=== PATIENT | female | born 1940 | race Caucasian/White ===

== ENCOUNTER 2016-11-11 11:52 | Emergency (ER) | payer MEDICARE ==
[2016-11-11 12:14] VITALS: BP 137/74
[2016-11-11] MEDS ORDERED: Albuterol 2.5 MG/3 ML NEB.SOL* (0.083%) INH ONE (13:47)
[2016-11-11] MEDS ORDERED: Ipratropium 0.5MG/2.5ML NEB* 0.5 MG/2.5 ML NEB.SOLN INH ONE (13:47)
--- NOTE | 2016-11-11 15:10 | UC ---
Cornelio Sin SooYoung, scribed for JesúsAlicenayeli Leon DO on 11/11/16 at 1226 . General HPI - HPI Summary HPI Summary: A 76 y/o F presents to [facility] [place] with c/o multiple symptoms onset two days ago, worsening last night and this AM. Sx include chills, chest congestion, mildly productive cough (clear phlegm), mild ear pressure, general malaise. Denies sore throat, ear pain, n/v, bowel changes. Pert PMHx: asthma. She states she used her albuterol inhaler at approx 1100 this AM [employer]. Pt notes she went to a hockey game last night, got quite chilled and was unable to get warm. Secondary complaint of intermittent back pain between shoulder blades radiating to R jaw and neck, last acute episode occurred last night. - History of Current Complaint Chief Complaint: UCGeneralIllness Stated Complaint: COUGH-JAW PAIN-SHOULDER PAIN- Time Seen by Provider: 11/11/16 12:10 Hx Obtained From: Patient Onset/Duration: Lasting Days, Still Present Timing: Constant Onset Severity: Mild Current Severity: Mild Pain Intensity: 0 - out of 10 Associated Signs & Symptoms: Positive: Back Pain - secondary complaint, Cough, Other - pos: chest congestion, chills, ear pressure - not pain, general malaise. Negative: Abdominal Pain, Chest Pain, Dizziness, Diaphoresis, Fever, Headache, Nausea, SOB, Vomiting - Allergy/Home Medications Allergies/Adverse Reactions: Allergies Allergy/AdvReac Type Severity Reaction Status Date / Time No Known Allergies Allergy Verified 09/14/12 11:02 Home Medications: Home Medications Beclomethasone Dipropionate [Qvar] 2 puff BID 11/11/16 [History Confirmed ] Ibuprofen TAB* [Advil TAB*] 2 tab PO 11/11/16 [History] PMH/Surg Hx/FS Hx/Imm Hx Previously Healthy: No Cardiovascular History Of: Denies: Hypertension, Pacemaker/ICD, Congestive Heart Failure Respiratory History Of: Reports: Asthma, Bronchitis Cancer History Of: Reports: Breast Cancer - LEFT BREAST 1995 - Surgical History Surgical History: Yes Surgery Procedure, Year, and Place: 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 CATARACT. COLON SURGERY. LUMPECTOMY - Family History Known Family History: Positive: Other - mother: osteoporosis Negative: Cardiac Disease, Hypertension, Diabetes - Social History Occupation: Retired Lives: With Family Alcohol Use: Weekly Substance Use Type: None Smoking Status (MU): Never Smoked Tobacco Review of Systems Constitutional: Chills Skin: Negative Eyes: Negative ENT: Other - pos: ear pressure, chest congestion Respiratory: Cough Cardiovascular: Negative Gastrointestinal: Negative Genitourinary: Negative Motor: Negative Neurovascular: Negative Musculoskeletal: Other: - pos: general malaise; secondary complaint of back pain Neurological: Negative Psychological: Negative All Other Systems Reviewed And Are Negative: Yes Physical Exam Triage Information Reviewed: Yes Appearance: Well-Appearing, No Pain Distress, Well-Nourished Vital Signs: Initial Vital Signs Temp 98.1 F 11/11/16 12:07 Pulse 72 11/11/16 12:07 Resp 18 11/11/16 12:07 BP 137/74 11/11/16 12:07 Pulse Ox 98 11/11/16 12:07 Vital Signs Reviewed: Yes Eyes: Positive: Conjunctiva Clear. Negative: Discharge ENT: Positive: Hearing grossly normal, Pharynx normal, Nasal drainage, TMs normal. Negative: Tonsillar swelling, Muffled/hoarse voice Dental: Positive: Other: - TENDER OVER MASETTER AND TMJ Neck exam: Normal Neck: Positive: Supple Respiratory: Positive: Wheezing - DIFFUSE WHEEZING OVER LEFT LUNG, MILD IN RT Diagnostics - EKG Cardiac Rate: NL - HR: 65bpm Cardiac Rhythm: Sinus: Normal - no change since prior 2003 Re-Evaluation - Re-Evaluation First Eval Re-Evaluation Time: 02:55 Change: Improved - CLEAR ALL VILLEDA S/P NEBS Course/Dx - Differential Dx - Multi-Symptom Provider Diagnoses: ASTHMA Discharge - Discharge Plan Condition: Stable Disposition: HOME Patient Education Materials: Asthma (ED), Temporomandibular Disorder (ED) Referrals: Teresa Pantoja MD [Primary Care Provider] - (3-5 days) Additional Instructions: FOR YOUR ASTHMA, WE RECCOMEND THAT YOU USE YOUR INHALER EVERY 4 HOURS NEEDED FOR EXCESSIVE COUGH, SHORTNESS OF BREATH AND WHEEZING. wE WILL HOLD OFF ON OTHER TREATMENTS NOW SINCE YOU CLEARED UP COMPLETELY WITH THE NEBULIZER TREATMENT. WILL WILL CALL YOU TOMORROW TO CHECK AND MAKE SURE THAT YOU ARE STILL DOING WELL. FOR THE TMJ DISORDER: FOLLOW UP WITH YOUR DENTIST THIS WEEK PLENNED. YOU WOULD LIKELY BENEFIT FROM OSTEOPATHIC TREATMENT. WE RECOMMEND THAT YOU FIND AN OSTEOPATHIC PHYSICIAN IN YOUR AREA WHO FOCUSES EXCLUSIVELY ON OSTEOPATHIC MANIPULATIVE MEDICINE WITH EXPERTISE IN MYOFACIAL, LYMPHATIC, VISCERAL AND INTEROSSEOUS WORK The documentation as recorded by the Cornelio alexis SooYoung accurately reflects the service I personally performed and the decisions made by me, Alice Espinosa DO.
== END 2016-11-11 15:09 | disposition home or self-care (01) ==
LOC: UCEAST 11:52
DX: J45.909 Unspecified asthma, uncomplicated (principal); J34.89 Other specified disorders of nose and nasal sinuses; M26.609 Unspecified temporomandibular joint disorder, unspecified side
CPT/HCPCS: 93005; 99212; G0463; J7644

== ENCOUNTER 2017-10-03 07:05 | Day surgery (SDC) | payer MEDICARE ==
--- NOTE | 2017-09-30 19:10 | HP ---
CC: Teresa Pantoja MD; Derian Lay MD * ADMISSION HISTORY AND PHYSICAL: DATE OF ADMISSION: 10/03/17 ATTENDING SURGEON: Philipp Doherty MD * (dictated by CARMEN Caruso). CHIEF COMPLAINT: Right breast cancer. HISTORY OF PRESENT ILLNESS: This is a 77-year-old female, who underwent mammogram on 09/12/17. This was in followup of a prior mammogram, which had noted micro- calcifications in the upper outer quadrant of the right breast. On the most recent study these had progressed and recommendation was made for biopsy. 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 A biopsy clip was placed and confirmed. The patient's background history includes a lumpectomy with axillary dissection for a left breast cancer in 1995 (the lymph nodes were negative). She did complete both chemotherapy and radiation therapy under the direction of Dr. Lay. Prior to the recent mammogram, the patient had noted no change in either breast and specifically no skin or nipple changes , nipple discharge, or breast mass. The patient was seen in the office by Dr. Doherty on 09/24/17, at which time there was noted to be some ecchymosis presumably from the recent biopsy and also some thickening in the 10 o'clock position of the right breast 4 cm from the areola. It was unsure if this was related to the biopsy or the cancer itself. There is no other palpable abnormality of either breast and no nipple discharge. Dr. Doherty discussed with her the indications for surgery, the risks, benefits and alternatives. She under-stands the expected perioperative course and would like to proceed as scheduled with wide excision right breast cancer (following needle localization) ; sentinel lymph node biopsy. PAST MEDICAL HISTORY: Left breast cancer (she does have some mild lymphedema in the left upper extremity following treatment). She was treated for a cancerous polyp of the colon approximately 11 years ago with subsequent segmental laparoscopic assisted colectomy, which was negative for any residual carcinoma. Medically, she is treated for asthma and overactive bladder. She does have some arthritis. PAST SURGICAL HISTORY: Her other previous surgeries include, (see above), lumbar laminectomy and bilateral cataract extraction with lens implants. No reported surgical or anesthesia problems. CURRENT MEDICATIONS: 1. Alvesco metered-dose inhaler 160 mcg 2 puffs once daily. 2. Oxybutynin Extended Release 10 mg once daily. 3. Montelukast 10 mg once daily. 4. Fish oil with D, once daily. 5. Calcium with D once daily. 6. She also takes a separate vitamin D 500 IU once daily. 7. Multivitamin once daily. 8. Albuterol MDI p.r.n. (has not needed of late). 9. Systane eyedrops 1 drop OU t.i.d. DRUG ALLERGIES: None known. FAMILY HISTORY: Negative for breast or ovarian cancer, and also negative for anesthesia problems, bleeding or clotting disorders. SOCIAL HISTORY: The patient is . She is most recently retired from [employer] work. She denies use of tobacco. She drinks on an average 3 glasses of wine per week. She denies any other recreational drug use. REVIEW OF SYSTEMS: General: No recent constitutional symptoms or acute illnesses. Weight has been stable. Cardiovascular: No history of hypertension , chest pain, or palpitations. She was told she has a heart murmur by her engineering aide. Respiratory: She is followed by Dr. Petty at [place] (see attached). No recent exacerbations of her asthma. No chronic cough or shortness of breath. GI: No problems reported other than some concerns for a couple of polyps removed at last colonoscopy in January 2017 with recommended followup in 1 year. No interval symptoms reported. : No problems reported. POP SINGER: See above. She no longer requires Pap smears. Endocrine: No diabetes or thyroid dysfunction. PHYSICAL EXAMINATION GENERAL: Well-nourished, well-developed female, in no acute distress. VITAL SIGNS: Height 62 inches, weight 138 pounds; temperature 96.9, blood pressure 122/64, pulse 84, respirations 18. HEENT: Pupils are equal, round, and reactive. EOMs intact. No conjunctival pallor. Oropharynx: Teeth in good repair. No intraoral lesions. NECK: No lymphadenopathy in the cervical or supraclavicular regions. No thyromegaly or masses. LUNGS: Clear to auscultation. No wheezes or rales. BREASTS: Not re-examined today (see Dr. Doherty's exam as noted above). HEART: Regular rate and rhythm. No murmur appreciated. ABDOMEN: Soft, nontender to palpation. No palpable masses or organomegaly. BACK: No spinous process or CVA tenderness. GENITALIA: Not done. RECTAL: Not done. EXTREMITIES: No edema of the lower extremities. There is some mild lymphedema in the left upper arm. NEUROLOGICAL: Grossly intact. SKIN: Warm and dry. No suspicious rashes or lesions. IMPRESSION: Right breast cancer. PLAN: Wide excision right breast cancer (following needle localization); sentinel lymph node biopsy. CARMEN CARUSO [id number]/[facility] #: [id number] [facility] CENTERSuman
[~2017-10-03 07:05] MED LIST: Buffered Lidocaine 0.9% SYRIN* 5 ML/SYR SYRINGE INTRADERM ONE; DiMENhydriNATE IV* 50 MG/ML VIAL IV PUSH PRN; Famotidine IV* 10 MG/ML 2 ML (20 mg) IV ONE; Morphine INJ* 2 MG/ML 1 ML CARPUJECT IV PRN; Naloxone* 0.4 MG/ML 1 ML VIAL IV PRN; PROCHLORPERAZINE INJ 5 MG/ML 2 ML VIAL IV PRN; fentaNYL* 50 MCG/ML 2 ML VIAL (100 MCG VIAL) IV PRN; oxyCODONE/Acetamin 5/325 MG* TAB PO PRN
[2017-10-03] MEDS ORDERED: Lidocaine 2.5%/Prilocain 2.5%* 5 GM TUBE ONE (07:21)
--- NOTE | 2017-10-03 09:49 | RAD ---
Indication: Invasive adenocarcinoma RIGHT breast. Mammographic guided wire localization requested. Comparison: Stereotactic biopsy of September 16, 2017 and September 12, 2017 mammogram. Following discussion of benefits and risks including but not limited to pain, infection, and bleeding written informed consent was obtained. The breast was marked. PROCEDURE: A time out was performed. Cephalad to caudal approach selected. Biopsy marker clip, residual microcalcifications, and presumed small postbiopsy hematoma identified on initial mammographic view with fenestrated compression paddle. The skin was cleansed with antiseptic. 1% buffered Lidocaine was infiltrated into the skin and subcutaneous tissues. A 7.5cm 20g Hernandez needle was advanced into the breast at the site of the targeted lesion. Position checked with a mammogram. Orthogonal view obtained to assess depth of needle. Needle depth adjusted and rechecked with mammography. The needle was removed and the hook wire deployed. Post deployment CC and ML views obtained and annotated for the surgeon. The free end of the wire was taped to the skin. The patient tolerated the procedure without difficult and there were no immediate complications. IMPRESSION: Successful mammographic guided wire localization RIGHT breast upper outer quadrant biopsy proven invasive adenocarcinoma.
[2017-10-03] MEDS ORDERED: ceFAZolin 2 GM in 100 MLS NS (*) BAG IVPB ONE (10:51)
[2017-10-03] MEDS ORDERED: Famotidine IV* 10 MG/ML 2 ML (20 mg) ONE (10:51)
--- NOTE | 2017-10-03 11:57 | RAD ---
INDICATION: RIGHT breast cancer. PROCEDURE: The risks and benefits of the procedure were explained to the patient. Written informed consent was obtained. 0.301 mCi total of filtered sulfur colloid were injected intradermal in 4 divided doses along the areolar margin flanking the upper outer quadrant RIGHT breast tumor site. Spot images?were?obtained?of?the?thorax with the ipsilateral arm over the head. Solitary ipsilateral axillary sentinal node marked on the skin utilizing a point source with the patient supine with the RIGHT arm over the head. IMPRESSION: Successful RIGHT breast lymphoscintigraphy.
[2017-10-03] MEDS ORDERED: fentaNYL* 50 MCG/ML 2 ML VIAL (100 MCG VIAL) ONE (12:04)
[2017-10-03] MEDS ORDERED: Midazolam* 1 MG/ML 10 ML VIAL (10 MG) ONE (12:04)
[2017-10-03] MEDS ORDERED: KETAMINE HCL* 50 MG/ML 10 ML VIAL ONE (12:04)
[2017-10-03] MEDS ORDERED: Lidocaine 1% INJ* 10 MG/ML 30 ML SDV ONE (12:41)
[2017-10-03] MEDS ORDERED: Bupivacaine 0.5% SDV PF* 10-30ML VIAL ONE ×2 (12:41→13:50)
[2017-10-03] MEDS ORDERED: Lidocaine 1.5% EPI 1:200,000* 30 ML SDV ONE ×2 (12:41→13:50)
[2017-10-03] MEDS ORDERED: Ketorolac INJ* 30 MG/ML 1 ML VIAL ONE (13:57)
[2017-10-03] MEDS ORDERED: Ondansetron INJ* 2 MG/ML VIAL ONE (13:57)
[2017-10-03] MEDS ORDERED: Dexamethasone IV* 4 MG/ML 1 ML (4 MG) ONE (13:57)
[2017-10-03] MEDS ORDERED: Propofol* 500 MG/50 ML BTL ONE (13:57)
[2017-10-03] MEDS ORDERED: Lidocaine 2% PF * 5 ML VIAL ONE (13:57)
--- NOTE | 2017-10-03 14:31 | OP ---
Operative Report - Blank - Operative Report Date of Operation: 10/03/17 Note: Pre-op dx: Right Breast Cancer Post-op dx: Right Breast Cancer Procedure: Wide excision of right breast cancer with sentinel lymph node biopsy. Anesthesia: local with MAC Surgeon: Dr. Doherty Assist: Hannah ZENDEJAS EBL: less than 50 Specimen: Right breast tissue and SLN Fluids: LR 700 ml Drains: None Findings: see dictation
[2017-10-03 14:44] VITALS: BP 123/70
--- NOTE | 2017-10-04 11:30 | OP ---
CC: Dr. Doherty; Dr. Pantoja; Dr. Lay OPERATIVE REPORT: DATE OF OPERATION: 10/03/17 DATE OF : 36 SURGEON: Philipp Doherty MD SYSTEM SOFTWARE DEVELOPER: None. ANESTHESIOLOGIST: Dr. Tubbs. ANESTHESIA: LMAC anesthesia. PRE-OP DIAGNOSIS: Right breast carcinoma. POST-OP DIAGNOSIS: Right breast carcinoma. OPERATIVE PROCEDURE: Needle localizing wide local excision, sentinel node biopsy of right breast can cer. DESCRIPTION OF PROCEDURE: The patient was supine on the operative table. After adequate intravenous sedation, compression stockings, Dorina Hugger warmer and intravenous antibiotics, the right breast an d axilla were prepped with antiseptic and draped in a sterile fashion. A curvilinear incision was cr eated in the right upper outer quadrant, it was tunneled underneath and the wire was brought into the site and the excision was carried out with a piece of tissue approximately 5 x 7 x 4 cm in size. Th is was carried down to the pectoralis fascia. It was marked with the usual marking sutures and sent fresh to x-ray, which confirmed excision of the lesion. It was then forwarded on to Pathology. Hemo stasis was obtained using cautery, suture were appropriate and the closure was accomplished using 3-0 and 5-0 Vicryl. In the right axilla, approximately 3-cm incision was created. Dissection carried d own to the axillary deja basin and solitary sentinel node was identified. This had count of 720. Th e basin count was down in single digits following this. This was sent in formalin labeled sentinel no de #1 count 720. Hemostasis was good. Closure accomplished in identical fashion followed by Jarret gonsalves. She was awakened and brought to Recovery in good condition. No complications. No drains. Pat hologic specimen is right breast excision and right axillary sentinel node. Sponge and instrument cou nts were correct. Estimated blood loss less 30 mL. [id number]/[facility] #: [id number]
== END 2017-10-03 15:25 | disposition home or self-care (01) ==
LOC: SDS 07:05
PROVIDERS: ATTEND Surgery
DX: C50.411 Malignant neoplasm of upper-outer quadrant of right female breast (principal); Z85.038 Personal history of other malignant neoplasm of large intestine; J45.909 Unspecified asthma, uncomplicated
CPT/HCPCS: 78195; 88307; 88342; A9270-GY; A9541; J1100; J1885; J2250; J2405; J2704; J3010

== ENCOUNTER 2019-07-18 00:08 | Emergency (ER) | payer MEDICARE ==
[2019-07-18] MEDS ORDERED: Alteplase* 100 MG VIAL ONE (00:15)
[2019-07-18] MEDS ORDERED: Iodixanol* (CONTRAST) 320 MG/ML 100 ML SDV IV ONE (00:16)
[2019-07-18] MEDS ORDERED: NS 0.9% 1000 ML** 1,000 ML IV ONE (00:16)
--- NOTE | 2019-07-18 00:20 | ED ---
Neurological HPI - HPI Summary HPI Summary: Patient is a 78 y/o F presenting to [facility] with complaints of left-sided arm and leg weakness, left-sided facial droop, and slurred speech. Last known well is reported to be 222907/17/19. EMS was called and evaluated the patient. They claim that Sx resolved shortly after their arrival. However, they still advised the patient to come to ED for evaluation. While loading the patient onto their stretcher, Sx returned and are reported to have been more severe than initial presentation. Patient denies Hx of stroke and cardiac issues. However, EMS notes that the patient was showing afib on monitor. BP was 160s/80s. Patient is not on blood thinners. Patient lives with her . Hx of UTIs is reported. Home medications and allergies are reviewed. Imani perez was called at 0003 with EMS ETA of six minutes. EMS arrived at 0008, provider at stretcher immediately to evaluate the patient. Initial NIH was done at 0009, patient in CT room at this time as well. - History of Current Complaint Stated Complaint: IMANI PEREZ PER EMS Hx Obtained From: Patient, EMS Onset/Duration: Started hours ago, Still Present Current Severity: Severe Neurological Deficit Location: Facial, LUE, LLE Character: Motor Weakness, Impaired Speech Associated Signs and Symptoms: Positive: Weakness, Impaired Speech - Allergy/Home Medications Allergies/Adverse Reactions: Allergies Allergy/AdvReac Type Severity Reaction Status Date / Time Seasonal and Environmental Allergy Intermediate Eyes Uncoded 03/13/18 12:28 Allergie Itchy/Swollen/Red/Watery PMH/Surg Hx/FS Hx/Imm Hx Endocrine/Hematology History: Denies: Hx Diabetes Cardiovascular History: Denies: Hx Congestive Heart Failure, Hx Hypertension, Hx Pacemaker/ICD, Other Cardiovascular Problems/Disorders Respiratory History: Reports: Hx Asthma - moderate GI History: Reports: Other GI Disorders - colon cancer History: Denies: Hx Renal Disease Musculoskeletal History: Reports: Hx Arthritis - mild- hands Denies: Hx Rheumatoid Arthritis, Hx Osteoporosis Sensory History: Reports: Hx Contacts or Glasses - glasses, Hx Hearing Aid - both Opthamlomology History: Reports: Hx Contacts or Glasses - glasses Psychiatric History: Denies: Hx Panic Disorder - Cancer History Cancer Type, Location and Year: breast, colon Hx Chemotherapy: Yes Hx Radiation Therapy: Yes - FINISHED END OF OCTOBER 2017 RIGHT/HX OF LEFT - Surgical History Surgery Procedure, Year, and Place: L3-L4-L5 FUSION 15 years ago [facility] ,. LEFT BREAST CANCER lumpectomy 21 years ago _[facility],. colon resection for colon cancer [facility] 2005. bilat cataracts removed with IOL. tonsillectomy as a child. 2017 - Rt LUMPECTOMY - BREAST Hx Anesthesia Reactions: No - Family History Known Family History: Positive: Other - mother: osteoporosis Negative: Cardiac Disease, Hypertension, Diabetes - Social History Alcohol Use: Weekly Alcohol Amount: 2-3 Substance Use Type: Reports: None Smoking Status (MU): Never Smoked Tobacco Have You Smoked in the Last Year: No Review of Systems Constitutional: Other - negative - AMS Positive: Weakness - left arm, left leg, left facial droop , Slurred Speech All Other Systems Reviewed And Are Negative: Yes Physical Exam - Summary Physical Exam Summary: Appearance: Well-appearing, Well-nourished, lying in bed comfortably Skin: Warm, dry, no obvious rash Eyes: sclera anicteric, no conjunctival pallor ENT: mucous membranes moist, pharynx appears normal Neck: Supple, nontender Respiratory: Clear to auscultation, no signs of respiratory distress Cardiovascular: Normal S1, S2. No murmurs. Normal distal pulses in tibial and radial bilaterally. Abdomen: Soft, nontender, normal active bowel sounds present Musculoskeletal: Normal, Strength/ROM Intact Neurological: Alert and oriented to place and self, somewhat vague about time, mentation is grossly normal, speech is dysarthric but intelligible, Level of consciousness nml. Cranial nerves exam notable for left gaze paresis. Gaze is otherwise conjugate and without nystagmus. Peripheral vision, pt cannot understand. There are no gross sensory abnormalities to light touch but she does have extinction to double simultaneous stimuli on the left. There is no obvious fine motor ataxia. Gait is not tested. She has a dense left facial and left UE paralysis, LLE can move somewhat against gravity but not resistance. GCS 15, NIH 14, see scale for breakdowns. Psychiatric: affect is a bit restless, does not appear anxious or depressed Triage Information Reviewed: Yes Vital Signs Reviewed: Yes - Street Coma Scale Best Eye Response: 4 - Spontaneous Best Motor Response: 6 - Obeys Commands Best Verbal Response: 5 - Oriented Coma Scale Total: 15 Procedures - Sedation Patient Received Moderate/Deep Sedation with Procedure: No Diagnostics - Laboratory Result Diagrams: 07/18/19 00:37 07/18/19 00:37 Lab Statement: Any lab studies that have been ordered have been reviewed, and results considered in the medical decision making process. - CT BRAIN CT CT Interpretation Completed By: Radiologist Summary of CT Findings: IMPRESSION: Probable age-related generalized atrophy and chronic ischemic changes. No. acute intracranial process. No intracranial hemorrhage. If clinical concern. for acute infarction, MRI with diffusion weighted sequences or intracranial CTA. should be considered. THIS REPORT WAS REVIEWED BY DR. RAMOS. 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 middle cerebral artery. Followup with neuro-interventional consult is. recommended. No other significant stenosis, occlusion or aneurysmal dilatation. within the anterior or posterior intracranial arterial circulation. Diminutive right vertebral artery, almost certainly congenital. No significant. stenosis or occlusion within the carotid or vertebral arteries of the neck. THIS REPORT WAS REVIEWED BY DR. RAMOS. - EKG 0036 Cardiac Rate: NL - rate of 92 BPM EKG Rhythm: Sinus Rhythm Summary of EKG Findings: EKG showed NSR at 92 BPM, P waves, QRS complex, and T waves are within normal limits, T waves and intervals are normal, no ischemic changes, no STEMI. This is a normal EKG. This EKG was reviewed and interpreted by ED physician. NIH Scale - NIH Scale Level of Consciousness: Alert/Keenly Responsive Ask Patient the Month and His/Her Age: Both Correct Ask Pt to Open/Close Eyes and Ditching Machine Engineer/Release Non-Paretic Hand: Both Correctly Best Gaze (Only Horizontal Eye Movement): Forced Deviation Visual Field Testing: No Visual Loss Facial Paresis-Pt to Smile & Close Eyes or Grimace Symmetry: Complete Paralysis Motor Function - Right Arm: No Drift-Holds 10 Seconds Motor Function - Left Arm: No Movement Motor Function - Right Leg: No Drift-Holds 10 Seconds Motor Function - Left Leg: Effort Against [place] Limb Ataxia-Must be out of Proportion to Weakness Present: Absent Sensory (Use Pinprick to Test Arms/Legs/Trunk/Face): Normal Best Language (Describe Picture, Name Items): No Aphasia Dysarthria (Read Several Words): Slurs Some Words Extinction and Inattention: Profound Brayan-Inattention Total Score: 14 Re-Evaluation - Re-Evaluation First Eval Re-Evaluation Time: 00:25 Comment: Family in ED, patient's case was discussed. Second Eval Re-Evaluation Time: 00:50 Comment: Patient and family agreeable with transfer. Course/Dx - Course Course Of Treatment: Patient is a 78 y/o F presenting to [facility] with complaints of left-sided arm and leg weakness, left-sided facial droop, and slurred speech. Last known well is reported to be 2230 07/17/19. EMS was called and evaluated the patient. They say that Sx resolved shortly after their arrival. However, they still advised the patient to come to ED for evaluation. While loading the patient onto their stretcher, Sx returned and are reported to have been more severe than initial presentation. Patient denies Hx of stroke and cardiac issues. However, EMS notes that the patient was showing afib on monitor. BP was 160s/80s. Patient is not on blood thinners. NIH was 14, see scale for breakdown. EKG showed NSR at 92 BPM, P waves, QRS complex, and T waves are within normal limits, T waves and intervals are normal, no ischemic changes, no STEMI. This is a normal EKG. BRAIN CT IMPRESSION: Probable age- related generalized atrophy and chronic ischemic changes. No. acute intracranial process. No intracranial hemorrhage. If clinical concern. for acute infarction, MRI with diffusion weighted sequences or intracranial CTA. should be considered. BRAIN CTA IMPRESSION: Probable near occlusive intra- arterial thrombus in the M1 segment of the right. middle cerebral artery. Followup with neuro-interventional consult is. recommended. No other significant stenosis, occlusion or aneurysmal dilatation. within the anterior or posterior intracranial arterial circulation. Diminutive right vertebral artery, almost certainly congenital. No significant. stenosis or occlusion within the carotid or vertebral arteries of the neck. After consultation with stroke neurologist at [place], Dr. 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 We are also giving TPA while arranging transport. Patient will be transferred to [facility] for neurosurgery services as [employer] is not flying. 0107 - Patient' s case was discussed with [facility] physician, Dr. Froilan Powell, Dr. Powell accepts transfer of patient to [facility]. - Diagnoses Provider Diagnoses: CVA (cerebral vascular accident) During the Visit The Following Alert/Code Occurred: Code [place]aly - Code suresh was called at 0003 with EMS ETA of six minutes. EMS arrived at 0008, provider at [facility] immediately to evaluate the patient. Initial NIH was done at 0009, patient in CT room at this time as well. 0014 - TPA mixing initiated, [facility] to be contacted. 0020 - report given to [place]. 0041 - Patient's case was discussed with Dr. Dennis Pearl, stroke neurologist from [facility] in [place]. He notes proximal right MCA occulsion, TPA to be given. Patient will be transferred to [facility] for neurosurgery services. 0053 - TPA administration initiated. - Physician Notifications Discussed Care Of Patient With: Dennis Pearl Time Discussed With Above Provider: 00:41 Instructed by Provider To: Other - 0041 - Patient's case was discussed with Dr. Dennis Pearl, stroke neurologist from [facility] in [place]. He notes proximal right MCA occulsion, TPA to be given. Patient will be transferred to [facility] for neurosurgery services. 0107 - Patient's case was discussed with [facility] physician, Dr. Froilan Powell, Dr. Powell accepts transfer of patient to [facility] - Critical Care Time Critical Care Time: 30-74 min - 55 minutes CCT Discharge ED - Sign-Out/Discharge Documenting (check all that apply): Patient Departure - transfer - Discharge Plan Condition: Guarded Disposition: TRANS HIGHER LVL OF CARE FAC Referrals: Teresa Pantoja MD [Primary Care Provider] - - Billing Disposition and Condition Condition: GUARDED Disposition: Trans Higher Lvl of Care Fac - Attestation Statements Document Initiated by Marya: Yes Documenting Scribe: VIKI LOZADA Provider For Whom Marya is Documenting (Include Credential): GURMEET RAMOS MD [employer] Attestation: VIKI Sin, scribed for GURMEET RAMOS MD on 07/18/19 at 0318. Scribe Documentation Reviewed: Yes Provider Attestation: The documentation as recorded by the VIKI alexis accurately reflects the service I personally performed and the decisions made by me, GURMEET RAMOS MD Status of Scribe Document: Viewed
[2019-07-18] MEDS ORDERED: Alteplase* 100 MG VIAL IV ONE ×2 (00:33)
[2019-07-18 00:52] LABS: Activated Partial Thrombo Time 34.4 seconds (26.0-38.0); INR 1.03 (0.82-1.09)
[2019-07-18 00:54] LABS: Albumin 3.5 g/dL (3.2-5.2); Anion Gap 7 mmol/L (2-11); CO2 Carbon Dioxide 25 mmol/L (22-32); Calcium 8.6 mg/dL (8.6-10.3); Chloride 106 mmol/L (101-111); Potassium 4.1 mmol/L (3.5-5.0); Sodium 138 mmol/L (135-145)
[2019-07-18 01:00] LABS: ALT 14 U/L (7-52); AST 21 U/L (13-39); Albumin/Globulin Ratio 1.5 (1-3); Alkaline Phosphatase 45 U/L (34-104); BUN/Creatinine Ratio 19.4 (8-20); Blood Urea Nitrogen 13 mg/dL (6-24); Cholesterol 148 mg/dL; EGFR African American 102.5 (>60); EGFR Non-African American 84.7 (>60); Globulin 2.3 g/dL (2-4); Glucose 99 mg/dL (70-100); HDL Cholesterol 58.1 mg/dL; LDL Cholesterol 52 mg/dL; Total Protein 5.8 g/dL (6.4-8.9); Triglycerides 191 mg/dL
[2019-07-18] MEDS ORDERED: ALTEPLASE IV ONE ×3 (01:00→01:01)
[2019-07-18 01:02] LABS: ABS Eosinophils 0.2 10^3/ul (0-0.6); ABS Lymphocytes 2.3 10^3/ul (1.0-4.8); ABS Monocytes 0.9 10^3/ul (0-0.8); ABS Neutrophils 5.6 10^3/ul (1.5-7.7); Eosinophil % 1.9 %; Hematocrit 37 % (35-47); Hemoglobin 12.9 g/dL (12.0-16.0); Lymphocyte % 25.1 %; Mean Corpuscular HGB Conc 35 g/dL (31-36); Mean Corpuscular Hemoglobin 33 pg (27-31); Mean Corpuscular Volume 95 fL (80-97); Mean Platelet Volume 8.9 fL (7.4-10.4); Platelet Count 195 10^3/uL (150-450); Red Blood Count 3.87 10^6 /uL (3.70-4.87); Red Cell Distribution Width 13 % (10-15)
[2019-07-18 01:26] LABS: Troponin I 0.03 ng/mL (<0.03)
[2019-07-18 03:21] VITALS: BP 0/0
--- OUTSIDE RECORDS SUMMARY | 2019-07-21 15:22 | XMS REPORT | Summary of Care ---
:1940 Author Organization [facility] Address [address] [place] [address] Care Team Providers Name Role Phone Teresa Pantoja MD Primary Care Provider Reason for Referral Diagnostic Radiology (Routine) Status Reason Specialty Diagnoses / Referred By Contact Referred To Procedures Contact Open Procedures Alice Higgins NP US Doppler Lower 90 [facility] Extremity Bilateral 4th Floor Venous Comp ([place] [address] Lab) Email: [email or web address] Reason for Visit Auth/Cert Status Reason Specialty Diagnoses / Procedures Referred By Contact Referred To Contact Diagnoses LVO Acute ischemic right MCA stroke Encounter Details Date Type Department Care Team Description 07/18/2019 - Hospital Encounter 09F NEUROSCIENCE Froilan Powell, [facility] [address], [address] [place] [address] [phone] 07/20/2019 CRITICAL CARE Akin Metcalf MBBS [address] [place] [address] [phone] [address] [place] [address] Allergies No Known Allergiesdocumented as of this encounter (statuses as of 07/20/2019) Medications Medication Sig Dispensed Refills Start Date End Date Status Aspirin 81 MG Oral Chew 1 tablet by 90 tablet 0 07/21/2019 10/19/2019 Active Tablet Chewable Mouth daily documented as of this encounter (statuses as of 07/20/2019) Active Problems Problem Noted Date Acute ischemic right MCA stroke 07/18/2019 documented as of this encounter (statuses as of 07/20/2019) Social History Tobacco Use Types Packs/Day Years Used Date Never Smoker 0 Smokeless Tobacco: Never Used Alcohol Use Drinks/Week oz/Week Comments Yes 4 Glasses of wine 4.0 Sex Assigned at Date Recorded Not on file Job Start Date Occupation Industry Not on file Not on file Not on file Travel History Travel Start Travel End No recent travel history available. documented as of this encounter Last Filed Vital Signs Vital Sign Reading Time Taken Comments Blood Pressure 121/64 07/20/2019 4:00 PM EST Pulse 70 07/20/2019 4:00 PM EST Temperature 36.7 07/20/2019 4:00 PM C (98.1 EST F) Respiratory Rate 15 07/20/2019 4:00 PM EST Oxygen Saturation 95% 07/20/2019 4:00 PM EST Inhaled Oxygen Concentration - - Weight 62.5 kg (137 lb 12.6 oz) 07/20/2019 4:00 PM EST Height 149 cm (4' 10.66") 07/18/2019 5:37 AM EST Body Mass Index 28.15 07/18/2019 5:37 AM EST documented in this encounter Progress Notes Benito Thomas RN - 07/20/2019 1:56 PM ESTCase Management Screen & Assessment Patient's Name: Ximena Calderon Date of : 1940 Age: 78 y.o. Gender: female Attending Provider: ALEXANDRA Simmons Admitting Diagnosis: LVO Acute ischemic right MCA stroke Admission Date and Time: 07/18/2019 2:27 AM High Risk Criteria - BRIDGE INSPECTOR/Upon Arrival BRIDGE INSPECTOR-Type of Residence: Private residence BRIDGE INSPECTOR- Home Care Services: No Limited Home Supports/Lives Alone?: No Multi trauma/Critical care admit?: Yes Head/Spinal cord injury?: No Self pay/No prescription plan?: No Active with homecare?: No Multiple ED visits?: No Related/Unplanned readmission within 30 days?: No Complex/New medical issues: LVO Relevant comorbidities: See EPIC CM Screen Outcome Supervisor Cytogenetic Laboratory Screen Outcome: Patient has non-skilled discharge-planning needs Patient/Agent informed of choice and given written list?: (n/a) Important message (Medicare rights) given?: Yes Date Given: 07/19/19 CM Chart Review Notice of Privacy Practice Signed?: Yes PCP (if different from registration record): Dr. Teresa Pantoja PCP phone#.: Self Pay: No Prescription Plan?: Yes (comment) Pt. Pharmacy & Phone # : [facility] [address] BRIDGE INSPECTOR: Functional/Environmental Assessment Came from Rehab/SNF, plan to return?: No Brief physical/psychosocial summary: lives home with spouse Bathing: Independent Dressing: Independent Toileting: Independent Medication administration: Independent Transfers: Independent Ambulation: Independent Meal preparation: Independent Number of stairs into home: 2 Number of stairs to bathroom: 0 Number of stairs to bedroom: 0(has elevator to 2nd floor) Durable Medical Equipment (DME): Grab bars, Cane, Tub bench Potential Issues/Teaching Needs Physical: PT/OT- no needs vs. OP Case Management Review Date CM re-review date needed?: No Discharge Assessment Additional Referrals Requested: no Patient/family informed of need for discharge planning?: Yes Patient/Agent informed of choice and given written list?: (n/a) Patient expects to be discharged to:: home with no needs vs. OP Has discharge transport been arranged?: No transport arrangement necessary Home with support services reinstated?: No Living Arrangements: Spouse/significant other Support Systems: Spouse/significant other Type of Residence: Private residence Home services arranged?: No Note: Chart reviewed. Met with patient to introduce self and role of CM. 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 Independent with no prior home services. Does have some DME. Was participating in OP therapy in the past. Here for LVO. Seen by therapy and cleared for home with no services vs. OP. Not anticipating any CM needs at this time. Unit CM to continue to follow for changes. Benito Thomas S 1: 59 PM Sonia Collins RN - 07/20/2019 11:33 AM Janet bull approximated. 1020: MD Whitlock and MD Purvis at bedside for BURT procedure. See sedation documentation and MAR for furtherinformation. Patient tolerated procedure well. Vital signs stable throughout. No adverse effects noted. Will continue to monitor. 1800: This RN reviewed all discharge paperwork and medications with patient. All appropriate paperwork completed and put in the chart. No further questions at this time. ONSera reyes - 07/20/2019 9:04 AM ESTPhysical Therapy Acute Care Neurology Treatment Note Medical Diagnosis: CVA Rehabilitation Precautions/Restrictions: OOB to chair, s/p tPA, SBP less than 180, DBP less than 105 Goal Review Visit Number: 2 SUBJECTIVE Patient Report: Pt reports doing well. Pt is agreeable to PT treatment. Pain: Patient has no complaints of pain currently. Pain Medication Today: no. OBJECTIVE Vital Signs: Prior to treatment: Heart rate 75 beats/min Oxygen saturation: 93% Blood pressure: 122/64 mm Hg After treatment: Heart rate 73 beats / min Oxygen saturation: 94% Respiratory rate: 14 breaths / minute General Observation: Female pt sitting in recliner chair. Nursing staff in room. Pt on room air. +tele +monitors +PIV R UE No chair alarm noted at start of session. Range of Motion:No change observed. Strength:R LE knee extension 4/5. Pt reports weakness is due to previous back problems. L LE knee extension 5/5. No other changes observed. Skin Integrity Screen: Visible skin grossly intact Functional Status: Bed Mobility: Patient moves from supine to/from sit with independence. Uses momentum to swing from supine to sitting EOB. Transfers: Patient transferred sit to/from stand requiring supervision. Patient used the following equipment: Transfer belt. Uses UE to push off bed and arms of chair during [id number] transfers. Locomotion/Wheelchair: Not assessed. Locomotion/Gait/Ambulation: Patient was modified independent with gait/ambulation for 150 feet . Patient requires the following assistive device(s): Straight cane. Gait belt. Pt leans to left during ambulation, especially during R stance. L hip drop during R stance. Decreased dorsiflexion of L LE. Wide base of support. Good kwadwo. Inconsistently step lengths. Does not use cane to offload weight or assist during ambulation. Patient was also contact guard with gait/ambulation of 1 person for 100 feet . Patient requires the following assistive device(s): Gait belt. Demonstrates decreased L trunk leaning and improved L LE clearance during ambulation with verbal cues. Progresses from contact guard to standby assistance for another 100 feet. Occasionally reaches out to grab hallway railing and desks for balance support during ambulation. Reports feeling unsteady when reaching for assistance. Stairs: Patient was independent for 12 steps up and down . Patient used the following equipment: Unilateral Railing. Reciprocal foot placement while ascending and descending stairs. Prestroke Modified Gustavo Score (mRS): 1 - The patient had no significant disability; able to carry out all activities. Modified Gustavo Score (mRS): 4 - Moderately severe disability; unable to walk without assistance and unable to attend to own bodily needs without assistance. Outcome Measures: [facility] "6 Clicks" Basic Mobility Inpatient Short Form: Turning over in bed: No difficulty (4) Sitting down on and standing up from a chair with arms: No difficulty (4) Moving from lying on back to sitting on the side of the bed: No difficulty (4) Moving to and from a bed to a chair (including a wheelchair): A little help (3) Walking in hospital room: A little help (3) Climbing 3-5 steps with a railing: No help (4) Raw Score 22 /24. Interventions: Gait Training: PT treatment provided to practice functional mobility, improve musculoskeletal strength and endurance, improve gait patterns. Pt ambulates as above with and without a straight cane. Without an assistive device, verbal cues provided to improve equal stance time on bilateral lower extremities and to decrease trunk leaning to the left. Pt demonstrates improved gait pattern with decreased trunk leaning and more symmetrical step lengths and stance time following verbal cues. Symptoms monitored during ambulation. Additional verbal cues provided to improve L LE foot clearance during ambulation. Assessed bilateral leg length following ambulation due to trunk leaning to the L and R uncompensated Trendelenburg. L LE appears longer than the right. Pt reports that she has been told the right hip is higher than the left and has tried shoe inserts, but the inserts do not usually fit in her shoes. Educated pt on following up with outpatient physical therapist to further discuss leg length discrepancy and trying different shoe inserts. Pt negotiates 12 steps as above progressing from contact guard to independence. Symptoms monitored during activity. Verbal cues initially provided to only use the left handrail to mimic the home environment. Educated pt on continued use of straight cane for ambulation to assist with balance during ambulation and to avoid compensatory patterns, including trunk leaning, while using an assistive device. Discussed the value of outpatient physical therapy following discharge from the hospital to continue to improve balance, gait pattern, and musculoskeletal strength. Pt is agreeable to participating in outpatient physical therapy. Pt reports experiencing occassional night time cramping in bilateral lower legs. Pt educated on importance of hydration, including water and drinks containing electrolytes, to combat cramping as well as to follow up with medical doctor to further discussing cramps. Education: Mode of education provided: Demonstration. Explanation. Audience: Patient. Education Provided: Importance of activity. Mobility Techniques. Role of Physical Therapy. Safety. Treatment Plan. Response: Indicates understanding. ASSESSMENT Response to Visit: The session was tolerated well. Pt is motivated and agreeable throughout treatment. Demonstrates improved independence with practice negotiating stairs. Demonstrates compensatory gait patterns that improve with verbal cues and attention to gait. Pt is agreeable to recommendations of outpatient physical therapy to continue to improve gait pattern. Chair alarm was on at end of session. Call ferris was in patient's reach at end of session. Pain: Patient has no complaints of pain currently. Goal review: Pt transfers from [id number] using arms of chair with supervision. Pt ambulates 150 feet using a straight cane with modified independence. Pt ambulates 100 feet without a straight cane with stand by assistance. Pt negotiates 4 steps up and down with independence with left handrail. Changes in or Continuation of Plan of Care: Patient will benefit from continued therapy to achieve planned goals. PLAN Treatment Frequency, Duration and Interventions: Restorative Physical Therapy is recommended for 5x week Treatment is to include: Gait Training. Manual Therapy. Neuromuscular Re-education. Therapeutic Activity. Therapeutic Exercise. Self Care/Home Management. Equipment Provided: None issued this visit. Equipment Recommended: To be assessed. Recommended Physical Therapy Follow Up: Upon acute care discharge, the following is currently recommended: Home with family assistance as needed and outpatient PT. Recommended Consults: None currently. Development of Plan of Care: Participants included: pt. There was no change to plan of care today. Visit Number: Today's visit is number 2 Program: Stroke (Therapist may be reached on [employer]) SESSION: Duration: 43 CHARGES: 60596 - CHARGE - PT GAIT TRNG - 15 MIN 3 Units - ORDER - Physical Therapy Treatment 1 Units - STROKE VISIT 1 Units Total treatment minutes: 43.00 Minutes Electronically Signed by: Sera Eckert, Student PT, 07/20/2019 12:53:20 PM - CoSigned By: Guanakito Wadsworth, PT, DPT, 07/20/2019 4:31:54 PM Monika Bhatt, [facility]-DIALYSIS BIOMED TECHNICIAN - 07/19/2019 12:30 PM ESTPatient Communication/Contact Note Consult received for swallow evaluation. Chart reviewed and pt passed RN dysphagia screen. Pt has been tolerating a regular and thin liquid diet without difficulty per RN. Will f/u at a later time to complete cognitive-communication assessment. SESSION: Duration: 0 CHARGES: - ORDER - SPEECH THERAPY CONSULT 1 Units Total treatment minutes: 0.00 Minutes Electronically Signed by: Monika Valdovinos MS,[facility] DIALYSIS BIOMED TECHNICIAN, DIALYSIS BIOMED TECHNICIAN 07/19/2019 12:34:50 PM Electronically signed by Monika Valdovinos [facility]-DIALYSIS BIOMED TECHNICIAN at 07/19/2019 12:35 PM Suzanne Spaulding, RD - 07/19/2019 11:05 AM EST Department of Food and Nutrition Nutritional Evaluation and Care Plan Consult: Nutrition counseling for stroke Basic Evaluation Patient is a 78 y.o. female, admitted on [id number] with a diagnosis of stroke. Past Medical History: Past Medical History: Diagnosis Date Arthritis Asthma Breast CA 1996 Breast Cancer Breast CA 2015 Breast Cancer Cancer 1996 colon Stroke Past Surgical History: Past Surgical History: Procedure Laterality Date BACK SURGERY BREAST LUMPECTOMY Bilateral 2016 BREAST LUMPECTOMY Bilateral 1996 COLON SURGERY 2009 Resection EYE SURGERY Bilateral 2003 Cataract SKIN BIOPSY Left 2013 Basil Cell Skin Graft - Face TONSILLECTOMY Home Medications: Prior to Admission medications Not on File Multidisciplinary Problems: Active Problems: Acute ischemic right MCA stroke Current Diet/Tube Feed/TPN Order: Diet Age: Adult; Diet: Regular Diet Age: Adult; Diet: NPO Active, Scheduled Medications: Current Facility-Administered Medications Medication Dose Route Frequency Provider Last Rate Last Dose acetaminophen (TYLENOL) tablet 650 mg 650 mg Oral Q6H PRN Sam Martin MD 650 mg at 07/18/19 2201 albuterol (PROVENTIL HFA;VENTOLIN HFA) inhaler 2 puff 2 puff Inhalation Q6H PRN ALEXANDRA Gray aspirin chewable tablet 81 mg 81 mg Oral Daily Jame Robbins MD 81 mg at 07/19/19 0838 bisacodyl (DULCOLAX) suppository 10 mg 10 mg Rectal Q72H PRN Sam Martin MD docusate sodium (COLACE) capsule 100 mg 100 mg Oral BID Sam Martin MD 100 mg at 838 hydrALAZINE (APRESOLINE) injection 10 mg 10 mg Intravenous Q6H PRN Sam Martin MD labetalol (NORMODYNE,TRANDATE) injection 10 mg 10 mg Intravenous Q6H PRN Sam Martin MD montelukast (SINGULAIR) tablet 10 mg 10 mg Oral Nightly ALEXANDRA Gray 10 mg at 07/18/19 2106 niCARdipine (CARDENE) 40 mg in sodium chloride 0.9 % 200 mL infusion ( 0.2 mg/mL) 5-15 mg/hr Intravenous Continuous Sam Martin MD Stopped at 07/18 0628 oxybutynin (DITROPAN) tablet 5 mg 5 mg Oral BID Tea MD Demarco 5 mg at 07/19/19 0838 senna 8.6 MG 2 tablet 2 tablet Oral Nightly PRN Sam Martin MD Or senna (SENOKOT) syrup 10 mL 10 mL Oral Nightly PRN Sam Martin MD tamoxifen tablet 20 mg 20 mg Oral Daily ALEXANDRA Gray Stopped at 07/19/19 1020 Allergies: Patient has no known allergies. Cultural/Church/Ethnic food preferences: none identified at this time Recent Labs Lab 07/18/19 0427 07/19/19 0422 NA 142 138 CL 108* 105 BUN 12 10 GLUCOSE 133 111 K 4.0 4.1 BICARBONATE 24 25 CREATININE 0.65 0.53 CALCIUM 8.6* 8.3* ALBUMIN 3.6 -- No results for input(s): POCGLU in the last 72 hours. Recent Labs Lab 07/18/19426 HDL 63 LDL 68 Interview: PMH includes colon cancer, breast cancer s/p chemo/radiation who presented with Left arm, face, and leg weakness and slurring. Pt found to have MCA occlusion. Pt passed her bedside swallow evaluation and was advanced to a regular diet yesterdat. She is eatingwell; she ate 100% of breakfast this morning and 80% of dinner last night. Pt will be NPO later today in anticipation of BURT. No weight hx on file. Pt reports that she has been trying to lose weight at home; she has lost ~ 3lbs thus far. She states that she is trying to avoid sweets. Otherwise, pt and her already minimize sodium and sat fat and cholesterol in their diet. We reviewed stroke nutrition education, and a hand out was provided. Questions of pt were answered, and she verbalized understanding. Labs reviewed; unremarkable Meds reviewed. LBM 07/19 Learning or discharge needs identified: nutrition stroke education Height: 149 cm Weight: 63.5 kg (139 lb 14.4 oz) Weight Method: Actual: Bed scale Body Mass Index: Body mass index is 28.58 kg/m. IBW Range (kg): 44 kg +/- 10% Weight change: -0.499 kg (-1 lb 1.6 oz) Obesity or underweight? No Malnutrition Identified: No Malnutrition Criteria: n/a Skin: no issues noted Nutrition Obstacles: readiness to change Energy/Protein Requirement based on: Actual weight 63.5 kg (07/19/19) Current Protein Needs: 1-1.2 g per kg body wt. = 64-76 g Current Energy Needs: 25-30 kcal per kg body wt. = 1411-0745 kcal Estimated Fluid Needs: 1 mL/kcal or per team I/O last 3 completed shifts: In: 1280 [P.O.:1280] Out: 1050 [Urine:1050] I/O this shift: In: 480 [P.O.:480] Out: - Nutrition Diagnostic Statement(s): Patient is at nutritional risk. Current risk is Moderate. Patient is found to have food and nutrition related knowledge deficit related to new diet education as evidenced by questions regarding diet education, lack of full implementation fo diet rec's at homePTA. Nutrition Intervention(s): Diet: 2 gm Na+, low sat fat/low cholesterol diet Nutrition stroke education provided and reviewed Nutrition Goal(s)/Outcome(s): Patient will tolerate nutrition prior to discharge. Recommendations: Diet: 2 gm Na+, low sat fat/low cholesterol diet Nutrition stroke education provided and reviewed Monitoring/Evaluation: Labs, Pt care rounds, Weight, I&O and nutrition intake and toleranceElectronically signed by Suzanne Wellington RD at 2018 1:51 PM Beata Gabriel MD - 07/19/2019 9:58 AM EST Stroke Service Progress Note Patient Ximena Calderon 1940 PCP Subjective Patient was seen and examined at bedside today, sitting up in a chair at bedside , a bookmarked novelat her side. When I entered the room patient was alert and greeted us pleasently. Patient slept wellovernight and had already finished breakfast this morning. Patient endorsed no headache, nausea, vomiting, cough, SOB, Chest pain, abdominal pain, weakness, numbness or constipation. There were no acute events overnight. The patient's past medical history, social history and family history are unchanged from prior assessment. She awaits BURT. Objective Temp: [36.3 C (97.3 F)-37.7 C (99.9 F)] 36.8 C (98.2 F) Pulse: [66-81] 70 Resp: [14-24] 20 BP: (92-132)/(54-74) 92/74 SpO2: [92 %-99 %] 99 % O2 Therapy: Room air Physical Exam General Appearance: in no apparent distress, alert, oriented times 3 and cooperative Skin: Normal HEENT: Head: Normocephalic, no lesions, without obvious abnormality. Cardiovascular: normal sinus rhythm, no murmurs, heart sounds normal Neurological Exam NIH Stroke Scale: Follow-up Assessment Category Patient Score 1a. Level of consciousness (Alert, drowsy, etc.) 0 - Alert 1b. LOC Questions (Month, age) 0 - Both questions correct 1c. LOC Commands (Open, close eyes; make fist, let go) 0 - Performs both tasks correctly 2. Best Gaze (Eyes open- patient follows finger or face) 0 - Normal 3. Visual (Introduce visual stimulus to patients visual field quadrants) 0 - No visual loss 4. Facial palsy (Show teeth, raise eyebrows and squeeze eyes shut) 0 - Normal, symmetrical movements 5a. Motor Arm left 5b. Motor Arm right (Elevate extremity to 90 and score drift/movement) Left: 0- No drift ( extends arm 10sec. w/o drift) Right: 0- No drift (extends arm 10sec. w/o drift) 6a. Motor Leg left 6b. Motor Leg right (Elevate extremity to 30 and score drift/movement) Left: 0- No drift ( extends leg 5 sec w/o drift) Right: 0- No drift (extends leg 5 sec w/o drift) 7. Limb Ataxia (Finger-nose, heel-luevano) 0 - Absent 8. Sensory (Pin prick to face, arm trunk, and leg- compare side to side) 0 - Normal 9. Best Language (Name items, describes a picture, reads sentence) 0 - No aphasia 10. Dysarthria (Evaluate speech clarity by patient repeating listed words) 0 - Normal articulation 11. Extinction and Inattention (Use information from prior testing to identify neglect or double simultaneous stimuli testing) 0 -No neglect Total Score: 0 NEUROLOGIC EXAMINATION: Mental status: oriented to person, place and time Level of alertness: alert to voice; awake Attention: Able to focus and sustain attention. Regards examiner. Language: Auditory comprehension:Intact Speech output: Fluent and grammatically correct Naming: Preserved Repetition: Intact. Cranial nerves: CN II:Direct pupillary reaction to light normal. Visual larios full CN III- : All extraocular movements were intact and no nystagmus noted CN V:Facial sensation was normal and symmetric CN VII: Facial expression was symmetric CN XII: Tongue protrusion was midline Sensory exam: preserved to light touch in upper and lower extremities * No drift on today's examination Motor exam: Proximal Distal Right Upper extremity 5 5 Left Upper extremity 5 5 Proximal Distal Right lower extremity 5 5 Left Lower extremity 5 5 Gait: Able to walk without any assistance or lateralization. Telemetry NSR Diagnostics All laboratory, imaging and other diagnostics have been personally reviewed by me. Lab Results Component Value Date HGBA1C 5.5 07/18/2019 Lab Results Component Value Date CHO 139 07/18/2019 TRIG 42 07/18/2019 HDL 63 07/18/2019 LDL 68 07/18/2019 VLDL 8 (L) 07/18/2019 NHDL 76 07/18/2019 Lab Results Component Value Date TSH 0.845 07/18/2019 Mr Brain Without Contrast: 07/18/2019 Acute infarct in the right parietal lobe with slight hemorrhagic changes. Diffuse volume loss and small vessel ischemic changes. CTA Head and Neck: 07/19/2019 No sign of hemorrhagic transformation No HDSS Medications Current Facility-Administered Medications Medication Dose Route Frequency Provider Last Rate Last Dose acetaminophen (TYLENOL) tablet 650 mg 650 mg Oral Q6H PRN Sam Martin MD 650 mg at 07/18/19 2201 albuterol (PROVENTIL HFA;VENTOLIN HFA) inhaler 2 puff 2 puff Inhalation Q6H PRN ALEXANDRA Gray aspirin chewable tablet 81 mg 81 mg Oral Daily Jame Robbins MD 81 mg at 07/19/19 0838 bisacodyl (DULCOLAX) suppository 10 mg 10 mg Rectal Q72H PRN Sam Martin MD docusate sodium (COLACE) capsule 100 mg 100 mg Oral BID Sam Martin MD 100 mg at 838 hydrALAZINE (APRESOLINE) injection 10 mg 10 mg Intravenous Q6H PRN Sam Martin MD labetalol (NORMODYNE,TRANDATE) injection 10 mg 10 mg Intravenous Q6H PRN Sam Martin MD montelukast (SINGULAIR) tablet 10 mg 10 mg Oral Nightly ALEXANDRA Gray 10 mg at 07/18/19 2106 niCARdipine (CARDENE) 40 mg in sodium chloride 0.9 % 200 mL infusion ( 0.2 mg/mL) 5-15 mg/hr Intravenous Continuous Sam Martin MD Stopped at 07/18 0628 oxybutynin (DITROPAN) tablet 5 mg 5 mg Oral BID Tea MD Demarco 5 mg at 07/19/19 0838 senna 8.6 MG 2 tablet 2 tablet Oral Nightly PRN Sam Martin MD Or senna (SENOKOT) syrup 10 mL 10 mL Oral Nightly PRN Sam Martin MD tamoxifen tablet 20 mg 20 mg Oral Daily ALEXANDRA Gray Assessment & Plan Ximena Calderon is a 78 y.o. right handed female with history of colon and breast cancer currently on noAC/AP at home who presented as a transfer from [place], [place] with CTA demonstrating right M1 MCA occlusion. she received IV tPA prior to transfer and on arrival NIHSS had improved drastically from 14 to 0. 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, Right MCA Mechanism: Embolic Etiology: ESUS, central sources to be excluded NIHSS: 0 Workup: CTA Head and Neck: 07/19 - No sign of hemorrhagic transformation; No HDSS MRI 07/18: right inferior division embolic pattern of infarction BURT: NPO at midnight; pending for tomorrow ILR: to be placed Secondary prevention: AC/AP: ASA 81mg BP control: SBP 100-160, 24hr SBP 107-132 Cholesterol: LDL 68, no indication for Statin at this time given paucity of atherosclerotic disease and low level Diabetes: A1c 5.5% DVT Prophylaxis: SCD's while in bed GI Prophylaxis: Not Indicated Code Status: Full Code Diet: regular diet Disposition: Plan discharge to: Home PT/OT/DIALYSIS BIOMED TECHNICIAN: Assist with IADLs and outpatient PT Estimated Discharge Date: 07/20 or 07/21 Patient seen and examined. Case discussed with Dr. Froilan Powell and formulated the above plan together. Associated attestation - Froilan Powell [facility] - 07/19/2019 1:40 PM ROZINA saw and personally examined the patient with the Stroke team on rounds; I personally reviewed thepertinent imaging, ancillary data, discussed the diagnosis, and supervised the formulation of the assessment and plan with the resident team. I agree with the history, exam, assessment and plan outlined in the resident's note except where stated otherwise in the supplemental documentation by myself. Seen reading her book sitting up at her bedside, comfortable and without complaints. Clinical exam improved, previously noted left pronator drift is not demonstrated today on rounds. BURT w/ bubble and ILR pending discharge. Anticipated discharge to home when cardioembolic workup is completed. The interval workup findings/results and management plan were discussed with the patient. Ptrc-gc-juen counseling provided and I attempted to answer all questions and address her concerns. The patientverbalized understanding of our working differential/diagnosis and current plan.Nadira Pal MD - 2018 7:59 AM EST NIH Stroke Scale: Follow-up Assessment Category Patient Score 1a. Level of consciousness (Alert, drowsy, etc.) 0 - Alert 1b. LOC Questions (Month, age) 0 - Both questions correct 1c. LOC Commands (Open, close eyes; make fist, let go) 0 - Performs both tasks correctly 2. Best Gaze (Eyes open- patient follows finger or face) 0 - Normal 3. Visual (Introduce visual stimulus to patients visual field quadrants) 0 - No visual loss 4. Facial palsy (Show teeth, raise eyebrows and squeeze eyes shut) 0 - Normal, symmetrical movements 5a. Motor Arm left 5b. Motor Arm right (Elevate extremity to 90 and score drift/movement) Left: 0- No drift ( extends arm 10sec. w/o drift) Right: 0- No drift (extends arm 10sec. w/o drift) 6a. Motor Leg left 6b. Motor Leg right (Elevate extremity to 30 and score drift/movement) Left: 0- No drift ( extends leg 5 sec w/o drift) Right: 0- No drift (extends leg 5 sec w/o drift) 7. Limb Ataxia (Finger-nose, heel-luevano) 0 - Absent 8. Sensory (Pin prick to face, arm trunk, and leg- compare side to side) 0 - Normal 9. Best Language (Name items, describes a picture, reads sentence) 0 - No aphasia 10. Dysarthria (Evaluate speech clarity by patient repeating listed words) 0 - Normal articulation 11. Extinction and Inattention (Use information from prior testing to identify neglect or double simultaneous stimuli testing) 0 -No neglect Total Score: 0 Jeff Zimmerman RN - 07/18/2019 7:21 AM [id number] Pt admitted to unit. 0600 Pt to MRI without complications. Jeff Zimmerman RN - 07/18/2019 5:26 AM ESTIf wound was present on admission, this documentation was sent to attending provider for cosignature. Chico Fontana MD - 07/18/2019 2:44 AM ESTBrief Note at the Time of Admission. 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 Given tPA 00:15 07/18/19. Found to have R M1 occlusion on CTA at OSH. 07/18 12:28AM Transferred to [facility] for mechanical thrombectomy consideration. En route, patient had significant improvement in weakness. Assessed the patient on arrival with Drs. Mc and Veronica. NIHSS 0 on arrival. This likely represents recanalization and tPA aborted stroke. She is not a candidate for mechanical thrombectomy as her NIHSS <6. BP parameters <180/105, Q1 neurochecks, and admission to stroke service. Chico Orlando MD, MPH Neurology, R2 (PGY-3) [phone] 07/18/19 2:58 AM documented in this encounter Plan of Treatment Name Type Priority Associated Diagnoses Date/Time US Doppler Lower Imaging Routine 07/20/2019 12:59 PM EST Extremity Bilateral Venous Comp (Vascular Lab) Name Type Priority Associated Diagnoses Order Schedule CBC and Differential Lab Routine Daily for 30 Days starting 07/18/2019 until 08/15/2019, 3 completed Basic Metabolic Panel Lab Routine Daily for 5 Days starting 07/21/2019 until 07/25/2019 Health Maintenance Due Date Last Done Comments MMR Vaccines (1 of 1 - Standard 1939 series) DTaP,Tdap,and Td Vaccines (1 - 1945 Tdap) Zoster Vaccines (1 of 2) 1988 Osteoporosis Screening 2 yr 2003 Pneumococcal Vaccine: 65+ Years (1 2003 of 2 - PCV13) Influenza Vaccine 05/19/2019 HIB Vaccines Aged Out No longer eligible based on patient's age to complete this topic Hepatitis A Vaccines Aged Out No longer eligible based on patient's age to complete this topic Hepatitis B Vaccines Aged Out No longer eligible based on patient's age to complete this topic IPV Vaccines Aged Out No longer eligible based on patient's age to complete this topic Pneumococcal Vaccine: Pediatrics Aged Out No longer eligible based on (0 to 5 Years) and At-Risk patient's age to complete this Patients (6 to 64 Years) topic Varicella Vaccines Aged Out No longer eligible based on patient's age to complete this topic documented as of this encounter Procedures Procedure Name Priority Date/Time Associated Comments Diagnosis ECHOCARDIOGRAM Pending 07/20/2019 10:20 Results for TRANSESOPHAGEAL Discharge AM EST this procedure are in the results section. CBC AND DIFFERENTIAL Routine 07/20/2019 3:17 Results for AM EST this procedure are in the results section. BASIC METABOLIC PANEL Routine 07/20/2019 3:17 Results for AM EST this procedure are in the results section. EP LAB PROCEDURE Routine 07/20/2019 12:15 AM EST CBC AND DIFFERENTIAL Routine 07/19/2019 4:22 Results for AM EST this procedure are in the results section. BASIC METABOLIC PANEL Routine 07/19/2019 4:22 Results for AM EST this procedure are in the results section. CT ANGIOGRAPHY NECK Routine 07/19/2019 12:34 [place] [address] AM EST this procedure are in the results section. CT ANGIOGRAPHY HEAD Routine 07/19/2019 12:34 [place] [address] AM EST this procedure are in the results section. MR BRAIN WITHOUT Routine 07/18/2019 6:46 Results for CONTRAST 67709 AM EST this procedure are in the results section. PROTIME INR Routine 07/18/2019 4:27 Results for AM EST this procedure are in the results section. CBC AND DIFFERENTIAL Routine 07/18/2019 4:27 Results for AM EST this procedure are in the results section. TSH Routine 07/18/2019 4:27 Results for AM EST this procedure are in the results section. HEMOGLOBIN A1C Routine 07/18/2019 4:27 Results for AM EST this procedure are in the results section. LIPID PANEL Routine 07/18/2019 4:27 Results for AM EST this procedure are in the results section. COMPREHENSIVE Routine 07/18/2019 4:27 Results for METABOLIC PANEL AM EST this procedure are in the results section. documented in this encounter Results Echocardiogram transesophageal(BURT) (07/20/2019 10:20 AM EST) Specimen Narrative Performed At HEIGHT: 0.0 cm (0 ft 0.0 in) [facility] WEIGHT: 0.0 kg (0.0 lbs) BP: 124/64 BSA: FINDINGS ------- TYPE OF REPORT:This is a complete two-dimensional transesophageal echocardiogram (2D, M-mode, Doppler and color flow Doppler). ECG rhythm:Sinus rhythm. Procedure:A BURT was performed in the location listed above. I certify I was present in compliance with [facility] regulations. The patient was monitored by a nurse in attendance throughout the procedure. The patient was sedated for the BURT. Local anesthesia was provided by benzocaine topical spray. There were no BURT related complications. Study quality:This was a technically adequate study. Left Ventricle:Overall left ventricular systolic function is normal with, an EF between 60 - 65 %. There is no LA Appendage Thrombus. INTERATRIAL SEPTUM:The interatrial septum is aneurysmal. Bubble study suggests patent foramen ovale present with a grade 2 right to left shunt. Contrast:Contrast study was performed with 2 iv injections of 8 ccs of agitated normal saline, at rest, and post-Valsalva. Aortic Valve:The aortic valve is trileaflet and appears structurally normal. There is no evidence of aortic regurgitation. There is no evidence of aortic stenosis. Mitral Valve:The mitral valve is normal. Tmyt-rl-xapzgzaq mitral regurgitation is present. Tricuspid Valve:The tricuspid valve appears grossly normal. Moderate tricuspid regurgitation present. The right ventricular systolic pressure, as measured by Doppler, is mildly increased at 46.90mmHg. Mild prolapse of the anterior tricuspid valve leaflet. Mild prolapse of the posterior tricuspid valve leaflet. Mild prolapse of the septal tricuspid valve leaflet. Pulmonic Valve:The pulmonic valve is normal. Mild pulmonic regurgitation. Aorta:The ascending aorta is borderline dilated measuring up to 3.19 cm. Non complex (< 4mm), atherosclerotic plaque(s) located in the descending aorta. Calcified non complexatherosclerotic plaque noted in the ascending aorta at the ST junction. Pulmonary Veins:The flow patterns, measured by Doppler, appear normal. CONCLUSIONS 1. This is a complete two-dimensional transesophageal echocardiogam (2D, M-mode, Doppler and color flow Doppler). 2. There is no LA Appendage Thrombus. 3. The interatrial septum is aneurysmal. 4. Bubble study suggests patent foramen ovale present with a grade 2 right to left shunt. 5. Sgah-wv-cjezyyfp mitral regurgitation is present. 6. Moderate tricuspid regurgitation present. 7. The right ventricular systolic pressure, as measured by Doppler, is mildly increased at 46.90mmHg. 8. Mild pulmonic regurgitation. 9. The ascending aorta is borderline dilated measuring up to 3.19 cm. 10. Non complex (< 4mm), atherosclerotic plaque(s) located in the descending aorta. Calcified non complexatherosclerotic p 11. Calcified non complexatherosclerotic plaque noted in the ascending aorta at the ST junction. Conclusions completed MEASUREMENTS Ao asc: 3.[address] junct: 2.85 cm Sinuses Of Valsalva: 3.107 cm TR Vmax: 3.12 m/s TR maxP.90 mmHg RAP: 8.00 mmHg RVSP: 46.90 mmHg Electronically Signed By: Ailyn Purvis MD Electronically Signed On: 07/20/2019 19:17:02 Procedure Note Interface, Received Via [employer] - 07/20/2019 7:20 PM EST HEIGHT: 0.0 cm (0 ft 0.0 in) WEIGHT: 0.0 kg (0.0 lbs) BP: 124/64 BSA: FINDINGS ------- TYPE OF REPORT:This is a complete two-dimensional transesophageal echocardiogram (2D, M-mode, Doppler and color flow Doppler). ECG rhythm:Sinus rhythm. Procedure:A BURT was performed in the location listed above. I certify I was present in compliance with [facility] regulations. The patient was monitored by a nurse in attendance throughout the procedure. The patient was sedated for the BURT. Local anesthesia was provided by benzocaine topical spray. There were no BURT related complications. Study quality:This was a technically adequate study. Left Ventricle:Overall left ventricular systolic function is normal with, an EF between 60 - 65 %. There is no LA Appendage Thrombus. INTERATRIAL SEPTUM:The interatrial septum is aneurysmal. Bubble study suggests patent foramen ovale present with a grade 2 right to left shunt. Contrast:Contrast study was performed with 2 iv injections of 8 ccs of agitated normal saline, at rest, and post-Valsalva. Aortic Valve:The aortic valve is trileaflet and appears structurally normal. There is no evidence of aortic regurgitation. There is no evidence of aortic stenosis. Mitral Valve:The mitral valve is normal. Drck-xe-fhscqurv mitral regurgitation is present. Tricuspid Valve:The tricuspid valve appears grossly normal. Moderate tricuspid regurgitation present. The right ventricular systolic pressure, as measured by Doppler, is mildly increased at 46.90mmHg. Mild prolapse of the anterior tricuspid valve leaflet. Mild prolapse of the posterior tricuspid valve leaflet. Mild prolapse of the septal tricuspid valve leaflet. Pulmonic Valve:The pulmonic valve is normal. Mild pulmonic regurgitation. Aorta:The ascending aorta is borderline dilated measuring up to 3.19 cm. Non complex (< 4mm), atherosclerotic plaque(s) located in the descending aorta. Calcified non complexatherosclerotic plaque noted in the ascending aorta at the ST junction. Pulmonary Veins:The flow patterns, measured by Doppler, appear normal. CONCLUSIONS 1. This is a complete two-dimensional transesophageal echocardiogam (2D, M-mode, Doppler and color flow Doppler). 2. There is no LA Appendage Thrombus. 3. The interatrial septum is aneurysmal. 4. Bubble study suggests patent foramen ovale present with a grade 2 right to left shunt. 5. Euef-ms-yeeyyzxa mitral regurgitation is present. 6. Moderate tricuspid regurgitation present. 7. The right ventricular systolic pressure, as measured by Doppler, is mildly increased at 46.90mmHg. 8. Mild pulmonic regurgitation. 9. The ascending aorta is borderline dilated measuring up to 3.19 cm. 10. Non complex (< 4mm), atherosclerotic plaque(s) located in the descending aorta. Calcified non complexatherosclerotic p 11. Calcified non complexatherosclerotic plaque noted in the ascending aorta at the ST junction. Conclusions completed MEASUREMENTS Ao asc: 3.[address] junct: 2.85 cm Sinuses Of Valsalva: 3.107 cm TR Vmax: 3.12 m/s TR maxP.90 mmHg RAP: 8.00 mmHg RVSP: 46.90 mmHg Electronically Signed By: Ailyn Purvis MD Electronically Signed On: 07/20/2019 19:17:02 Performing Organization Address City/State/Zipcode Phone Number [facility] Basic Metabolic Panel (07/20/2019 3:17 AM EST) Bicarbonate 26 22 - 29 mmol/L [facility] Chloride 102 98 - 107 mmol/L [facility] Creatinine 0.60 0.50 - 0.90 [facility] mg/dL [facility] Glucose 103 70 - 140 mg/dL [facility] Potassium 4.1 3.4 - 5.1 [facility] mmol/L [facility] Sodium 139 136 - 145 [facility] mmol/L [facility] Blood Urea Nitrogen 11 8 - 23 mg/dL [facility] Anion Gap 11 8 - 15 mmol/L [facility] Osmolality, Robert 288 275 - 300 [facility] mosm/kg [facility] BUN/Cre Ratio 18 [facility] Calcium 8.6 (L) 8.8 - 10.2 [facility] mg/dL [facility] GFR Non >90 >60 [facility] Mexican 2008 CDK-EPI mL/min/1.73m2 [facility] GFR >90 >60 [facility] 2009 CKD-EPI mL/min/1.73m2 [facility] Specimen Plasma Performing Organization Address City/State/Zipcode Phone Number [facility] [address] [place] [address] [phone] [facility] [address] [place] [address] Pathology CBC and Differential (07/20/2019 3:17 AM EST) White Blood Cell 6.8 4 - 10 [facility] 10*3/uL [facility] Red Blood Cell 4.02 (L) 4.1 - 5.3 [facility] 10*6/uL [facility] Hemoglobin 12.7 11.5 - 15.5 [facility] g/dL [facility] Hematocrit 38.9 36 - 45 % [facility] Mean Cell Volume 96.7 (H) 80 - 96 fL [facility] Mean Cell Hemoglobin 31.6 27 - 33 pg [facility] Mean Cell Hgb Conc 32.7 32.0 - 36.0 [facility] g/dL [facility] Red Cell Dist Width 13.5 11.5 - 14.5 % [facility] Platelet Count 199 150 - 400 [facility] 10*3/uL [facility] Differential Type Automated Diff [facility] Neutrophil 59 % [facility] Lymphocyte 31 % [facility] Monocyte 8 % [facility] Eosinophil 2 % [facility] Basophil 0 % [facility] Abs Neutrophil 4.08 1.8 - 7.0 [facility] 10*3/uL [facility] Abs Lymphocyte 2.11 1.2 - 4.0 [facility] 10*3/uL [facility] Abs Monocyte 0.52 0 - 0.8 [facility] 10*3/uL [facility] Abs Eosinophil 0.10 0 - 0.5 [facility] 10*3/uL [facility] Abs Basophil 0.03 0 - 0.2 [facility] 10*3/uL [facility] Nucleated Red Blood 0 0 - 0 [facility] Cells /100{WBCs} [facility] Specimen EDTA Whole Blood Performing Organization Address [facility] Phone Number [facility] [address] [place] [address] [phone] [facility] [address] [place] [address] Pathology Basic Metabolic Panel (07/19/2019 4:22 AM EST) Bicarbonate 25 22 - 29 mmol/L [facility] Chloride 105 98 - 107 mmol/L [facility] Creatinine 0.53 0.50 - 0.90 [facility] mg/dL [facility] Glucose 111 70 - 140 mg/dL [facility] Potassium 4.1 3.4 - 5.1 [facility] mmol/L [facility] Sodium 138 136 - 145 [facility] mmol/L [facility] Blood Urea Nitrogen 10 8 - 23 mg/dL [facility] Anion Gap 8 8 - 15 mmol/L [facility] Osmolality, Robert 286 275 - 300 [facility] mosm/kg [facility] BUN/Cre Ratio 19 [facility] Calcium 8.3 (L) 8.8 - 10.2 [facility] mg/dL [facility] GFR Non >90 >60 [facility] Mexican 2008 CDK-EPI mL/min/1.73m2 [facility] GFR >90 >60 [facility] 2009 CKD-EPI mL/min/1.73m2 [facility] Specimen Plasma Performing Organization Address [facility] Phone Number [facility] [address] [place] [address] [phone] [facility] [address] [place] [address] Pathology CBC and Differential (07/19/2019 4:22 AM EST) White Blood Cell 6.6 4 - 10 [facility] 10*3/uL [facility] Red Blood Cell 3.61 (L) 4.1 - 5.3 [facility] 10*6/uL [facility] Hemoglobin 11.7 11.5 - 15.5 [facility] g/dL [facility] Hematocrit 34.8 (L) 36 - 45 % [facility] Mean Cell Volume 96.3 (H) 80 - 96 fL [facility] Mean Cell Hemoglobin 32.5 27 - 33 pg [facility] Mean Cell Hgb Conc 33.7 32.0 - 36.0 [facility] g/dL [facility] Red Cell Dist Width 13.4 11.5 - 14.5 % [facility] Platelet Count 176 150 - 400 [facility] 10*3/uL [facility] Differential Type Automated Diff [facility]ology Neutrophil 64 % [facility] Lymphocyte 27 % [facility] Monocyte 8 % [facility]ology Eosinophil 1 % [facility]ology Basophil 0 % [facility] Abs Neutrophil 4.15 1.8 - 7.0 [facility] 10*3/uL [facility] Abs Lymphocyte 1.78 1.2 - 4.0 [facility] 10*3/uL [facility] Abs Monocyte 0.54 0 - 0.8 [facility] 10*3/uL [facility] Abs Eosinophil 0.09 0 - 0.5 [facility] 10*3/uL [facility] Abs Basophil 0.03 0 - 0.2 [facility] 10*3/uL [facility] Nucleated Red Blood 0 0 - 0 [facility] Cells /100{WBCs} [facility] Pathology Specimen EDTA Whole Blood Performing Organization Address City/State/Zipcomn Phone Number [facility] [address] [place] [address] [phone] [facility] [address] [place] [address] Angiography Neck (07/19/2019 12:34 AM EST) Specimen Impressions Performed At Impression: [facility] 1. Unremarkable CT angiography of brain. No significant high-grade stenosis, large vessel occlusion, aneurysm or arteriovenous malformation is evident on this study. 2. Patent carotid and vertebral arteries. No hemodynamically significant stenosis identified. 3. No acute infarct or hemorrhage. 4. Bilateral thyroid nodules Narrative Performed At Stroke workup [facility] Examination: CT Angiogram of the head and multiple reconstruction including 3 D volume and MIP were obtained. Technique: A CT angiogram of the brain was performed with contrast. Automated dose lowering techniques and/or adjustment according to patient size were utilized for this exam. Findings: Noncontrast CT head study shows diffuse volume loss and small vessel ischemic changes. The major intracranial arteries, including the anterior, middle, and posterior cerebral arteries and intracranial portions of the carotid arteries, as well as their major branches, appear patent. There is normal perfusion of the basilar artery and intracranial portions of both vertebral arteries. Right vertebral artery is hypoplastic There is no evidence for large vessel occlusion, significant stenosis, intracranial aneurysm or vascular malformation. CT angiography of neck: Technique: Thin high resolution axial images were obtained and neck following intravenous administration of Omnipaque 350 and multiple reconstructions including MIP and 3 D volume were obtained. NASCET criteria used for stenosis measurement. Automated dose lowering techniques and/or adjustment according to patient size were utilized for this exam. Findings: Bilaterally, common carotid, internal carotid and external carotid arteries are patent. There is mild atherosclerotic disease at origin of internal carotid arteries but no hemodynamically significant this is identified in the internal carotid arteries. Both vertebral arteries also patent and no hemodynamically significant stenosis identified. Right vertebral artery is hypoplastic. Procedure Note Interface, Received Via [employer] - 07/19/2019 12:12 PM EST Stroke workup Examination: CT Angiogram of the head and multiple reconstruction including 3 D volume and MIP were obtained. Technique: A CT angiogram of the brain was performed with contrast. Automated dose lowering techniques and/or adjustment according to patient size were utilized for this exam. Findings: Noncontrast CT head study shows diffuse volume loss and small vessel ischemic changes. The major intracranial arteries, including the anterior, middle, and posterior cerebral arteries and intracranial portions of the carotid arteries, as well as their major branches, appear patent. There is normal perfusion of the basilar artery and intracranial portions of both vertebral arteries. Right vertebral artery is hypoplastic There is no evidence for large vessel occlusion, significant stenosis, intracranial aneurysm or vascular malformation. CT angiography of neck: Technique: Thin high resolution axial images were obtained and neck following intravenous administration of Omnipaque 350 and multiple reconstructions including MIP and 3 D volume were obtained. NASCET criteria used for stenosis measurement. Automated dose lowering techniques and/ or adjustment according to patient size were utilized for this exam. Findings: Bilaterally, common carotid, internal carotid and external carotid arteries are patent. There is mild atherosclerotic disease at origin of internal carotid arteries but no hemodynamically significant this is identified in the internal carotid arteries. Both vertebral arteries also patent and no hemodynamically significant stenosis identified. Right vertebral artery is hypoplastic. Impression: 1. Unremarkable CT angiography of brain. No significant high-grade stenosis, large vessel occlusion, aneurysm or arteriovenous malformation is evident on this study. 2. Patent carotid and vertebral arteries. No hemodynamically significant stenosis identified. 3. No acute infarct or hemorrhage. 4. Bilateral thyroid nodules Performing Organization Address City/State/Zipcode Phone Number [facility] [address] [place] [address] CT Angiography Head (07/19/2019 12:34 AM EST) Specimen Impressions Performed At Impression: [facility] 1. Unremarkable CT angiography of brain. No significant high-grade stenosis, large vessel occlusion, aneurysm or arteriovenous malformation is evident on this study. 2. Patent carotid and vertebral arteries. No hemodynamically significant stenosis identified. 3. No acute infarct or hemorrhage. 4. Bilateral thyroid nodules Narrative Performed At Stroke workup [facility] Examination: CT Angiogram of the head and multiple reconstruction including 3 D volume and MIP were obtained. Technique: A CT angiogram of the brain was performed with contrast. Automated dose lowering techniques and/or adjustment according to patient size were utilized for this exam. Findings: Noncontrast CT head study shows diffuse volume loss and small vessel ischemic changes. The major intracranial arteries, including the anterior, middle, and posterior cerebral arteries and intracranial portions of the carotid arteries, as well as their major branches, appear patent. There is normal perfusion of the basilar artery and intracranial portions of both vertebral arteries. Right vertebral artery is hypoplastic There is no evidence for large vessel occlusion, significant stenosis, intracranial aneurysm or vascular malformation. CT angiography of neck: Technique: Thin high resolution axial images were obtained and neck following intravenous administration of Omnipaque 350 and multiple reconstructions including MIP and 3 D volume were obtained. NASCET criteria used for stenosis measurement. Automated dose lowering techniques and/or adjustment according to patient size were utilized for this exam. Findings: Bilaterally, common carotid, internal carotid and external carotid arteries are patent. There is mild atherosclerotic disease at origin of internal carotid arteries but no hemodynamically significant this is identified in the internal carotid arteries. Both vertebral arteries also patent and no hemodynamically significant stenosis identified. Right vertebral artery is hypoplastic. Procedure Note Interface, Received Via Addy System - 07/19/2019 12:12 PM EST Stroke workup Examination: CT Angiogram of the head and multiple reconstruction including 3 D volume and MIP were obtained. Technique: A CT angiogram of the brain was performed with contrast. Automated dose lowering techniques and/or adjustment according to patient size were utilized for this exam. Findings: Noncontrast CT head study shows diffuse volume loss and small vessel ischemic changes. The major intracranial arteries, including the anterior, middle, and posterior cerebral arteries and intracranial portions of the carotid arteries, as well as their major branches, appear patent. There is normal perfusion of the basilar artery and intracranial portions of both vertebral arteries. Right vertebral artery is hypoplastic There is no evidence for large vessel occlusion, significant stenosis, intracranial aneurysm or vascular malformation. CT angiography of neck: Technique: Thin high resolution axial images were obtained and neck following intravenous administration of Omnipaque 350 and multiple reconstructions including MIP and 3 D volume were obtained. NASCET criteria used for stenosis measurement. Automated dose lowering techniques and/ or adjustment according to patient size were utilized for this exam. Findings: Bilaterally, common carotid, internal carotid and external carotid arteries are patent. There is mild atherosclerotic disease at origin of internal carotid arteries but no hemodynamically significant this is identified in the internal carotid arteries. Both vertebral arteries also patent and no hemodynamically significant stenosis identified. Right vertebral artery is hypoplastic. Impression: 1. Unremarkable CT angiography of brain. No significant high-grade stenosis, large vessel occlusion, aneurysm or arteriovenous malformation is evident on this study. 2. Patent carotid and vertebral arteries. No hemodynamically significant stenosis identified. 3. No acute infarct or hemorrhage. 4. Bilateral thyroid nodules Performing Organization Address City/State/Zipcode Phone Number [facility] [address] [place] [address] MR Brain without Contrast (07/18/2019 6:46 AM EST) Specimen Impressions Performed At Impression: Acute infarct in the right parietal lobe with slight [facility] hemorrhagic changes. Diffuse volume loss and small vessel ischemic changes. Narrative Performed At [facility] EXAMINATION: MRA brain without contrast CLINICAL INDICATION: stroke workup. TECHNIQUE: Multiplanar and multisequence MR images of the brain were obtained COMPARISON: None at the time of this dictation. FINDINGS: Acute infarct is present in the parietal region. Small hemorrhages identified on SWI sequence. Multiple foci of FLAIR hyperintensity noted in the periventricular and peripheral white matter co nsistent with small vessel ischemic changes. No acute infarct is evident. No acute hemorrhage identified. Incidental finding of right temporal arachnoid cyst. There is no solid mass effect or midline sh ift. The ventricles and sulci dilated indicating loss. Normal flow void is present in the intracranial vessels suggesting patency. Procedure Note Interface, Received Via Radiant System - 07/18/2019 10:19 AM EST EXAMINATION: MRA brain without contrast CLINICAL INDICATION: stroke workup. TECHNIQUE: Multiplanar and multisequence MR images of the brain were obtained COMPARISON: None at the time of this dictation. FINDINGS: Acute infarct is present in the parietal region. Small hemorrhages identified on SWI sequence. Multiple foci of FLAIR hyperintensity noted in the periventricular and peripheral white matter consistent with small vessel ischemic changes. No acute infarct is evident. No acute hemorrhage identified. Incidental finding of right temporal arachnoid cyst. There is no solid mass effect or midline shift. The ventricles and sulci dilated indicating loss. Normal flow void is present in the intracranial vessels suggesting patency. Impression: Acute infarct in the right parietal lobe with slight hemorrhagic changes. Diffuse volume loss and small vessel ischemic changes. Performing Organization Address City/[facility]/Zipcode Phone Number [facility] [address] [place] [address] Protime-INR (07/18/2019 4:27 AM EST) PT Patient 13.9 12.5 - 14.9 [facility] Pathology Int'l Normalized 1.04Comment: Routine [facility] Ratio intensity oral [facility] anticoagulation INR is Pathology typically 2.0-3.0. Target INR must be clinically individualized. Specimen Plasma Performing Organization Address City/State/Zipcode Phone Number [facility] [address] [place] [address] [phone] [facility] [address] [place] [address] Pathology CBC and Differential (07/18/2019 4:27 AM EST) White Blood Cell 9.1 4 - 10 [facility] 10*3/uL [facility] Pathology Red Blood Cell 3.66 (L) 4.1 - 5.3 [facility] 10*6/uL [facility] Pathology Hemoglobin 11.7 11.5 - 15.5 [facility] g/dL [facility] Pathology Hematocrit 35.0 (L) 36 - 45 % [facility] Pathology Mean Cell Volume 95.7 80 - 96 fL [facility] Pathology Mean Cell Hemoglobin 31.9 27 - 33 pg [facility] Pathology Mean Cell Hgb Conc 33.4 32.0 - 36.0 [facility] g/dL [facility] Pathology Red Cell Dist Width 13.2 11.5 - 14.5 % [facility] Pathology Platelet Count 187 150 - 400 [facility] 10*3/uL [facility] Pathology Differential Type Automated Diff [facility] Pathology Neutrophil 81 % [facility] Pathology Lymphocyte 13 % [facility] Pathology Monocyte 5 % [facility] Pathology Eosinophil 0 % [facility] Pathology Basophil 1 % [facility] Pathology Abs Neutrophil 7.32 (H) 1.8 - 7.0 [facility] 10*3/uL [facility] Pathology Abs Lymphocyte 1.18 (L) 1.2 - 4.0 [facility] 10*3/uL [facility] Pathology Abs Monocyte 0.49 0 - 0.8 [facility] 10*3/uL [facility] Pathology Abs Eosinophil 0.02 0 - 0.5 [facility] 10*3/uL [facility] Pathology Abs Basophil 0.11 0 - 0.2 [facility] 10*3/uL [facility] Pathology Nucleated Red Blood 0 0 - 0 [facility] Cells /100{WBCs} [facility] Pathology Specimen EDTA Whole Blood Performing Organization Address City/[facility] Phone Number [facility] [address] [place] [address] [facility] [address] [place] [address] Pathology TSH (07/18/2019 4:27 AM EST) TSH 0.845 0.270 - 4.200 u[IU]/mL [facility] Clin Pathology Specimen Plasma Performing Organization Address [facility] Cent[facility]ode Phone Number [facility] [address] [place] [address] [facility] [address] [place] [address] Pathology Hemoglobin A1c (07/18/2019 4:27 AM EST) Hemoglobin A1C 5.5 4.0 - 6.0 % [facility] Comment: Univ [facility] (NOTE) Pathology <5.7% Average risk of diabetes(ADA) 5.7-6.4% Increased risk of diabetes(ADA) >/= 6.5% Diagnostic for diabetes(ADA) Estimated Avg 111 <126 mg/dL [facility] Glucose [facility] Pathology Specimen Whole Blood Performing Organization Address [facility] Cent[facility] Phone Number [facility] [address] [place] [address] [facility] [address] [place] [address] Pathology Lipid panel (07/18/2019 4:27 AM EST) Cholesterol 139 <200 mg/dL [facility] Pathology Triglyceride 42 <150 mg/dL [facility] Pathology HDL Cholesterol 63 >50 mg/dL [facility] Pathology LDL Cholesterol 68 <100 mg/dL [facility] Pathology VLDL Cholesterol 8 (L) 16 - 42 mg/dl [facility] Pathology Non HDL Cholesterol 76 <130 mg/dL [facility] Pathology Specimen Plasma Performing Organization Address [facility] Centercomn Phone Number [facility] [address] [place] [address] [facility] [address] [place] [phone] Pathology Comprehensive Metabolic Panel (07/18/2019 4:27 AM EST) Albumin 3.6 3.5 - 5.2 g/dL [facility] Pathology Bilirubin, Total 0.2 <1.2 mg/dL [facility] Pathology Calcium 8.6 (L) 8.8 - 10.2 [facility] mg/dL [facility] Pathology Chloride 108 (H) 98 - 107 mmol/L [facility] Pathology Creatinine 0.65 0.50 - 0.90 [facility] mg/dL [facility] Pathology Glucose 133 70 - 140 mg/dL [facility] Pathology Alkaline Phosphatase 40 35 - 104 U/L [facility] Pathology Potassium 4.0 3.4 - 5.1 [facility] mmol/L [facility] Pathology Total Protein 5.8 (L) 6.4 - 8.3 g/dL [facility] Pathology Sodium 142 136 - 145 [facility] mmol/L [facility] Pathology AST/SGO 18 <32 U/L [facility] Pathology Blood Urea Nitrogen 12 8 - 23 mg/dL [facility] Pathology Osmolality, Robert 296 275 - 300 [facility] mosm/kg [facility] Pathology BUN/Cre Ratio 18 [facility] Pathology Bicarbonate 24 22 - 29 mmol/L [facility] Pathology ALT/SGP 15 <33 U/L [facility] Pathology Anion Gap 10 8 - 15 mmol/L [facility] Pathology A/G Ratio 1.6 [facility] Pathology GFR Non >90 >60 [facility] Mexican 2008 CDK-EPI mL/min/1.73m2 [facility] Pathology GFR >90 >60 [facility] 2009 CKD-EPI mL/min/1.73m2 [facility] Pathology Specimen Plasma Performing Organization Address City/State/Zipcode Phone Number [facility] [address] [place] [address] [facility] [address] [place] [address] Pathology documented in this encounter Visit Diagnoses Diagnosis Acute ischemic right MCA stroke Unspecified cerebral artery occlusion with cerebral infarction documented in this encounter Administered Medications Medication Order MAR Action Action Date Dose Rate Site acetaminophen (TYLENOL) tablet Given 07/19/2019 11:36 PM EST 650 mg 650 mg 650 mg, Oral, Every 6 hours PRN, Mild Pain (Pain Scale Score 1-3), Moderate Pain (Pain Scale Score 4-6), Headaches, Fever, temp greater than 99.5 F, Starting 07/18/19 at 0227, For 30 days, Maximum daily dose of acetaminophen is 3,000 mg from all sources in 24 hours., Given 07/18/2019 10:01 PM EST 650 mg albuterol (PROVENTIL HFA;VENTOLIN HFA) inhaler 2 puff 2 puff, Inhalation, Every 6 hours PRN, Wheezing, Starting 07/18/19 at 0338, For 4 days, Shake the inhaler well before each spray., aspirin chewable tablet 81 mg Given 07/19/2019 8:38 AM EST 81 mg 81 mg, Oral, Daily Standard, First dose on 07/19/19 at 0900, For 30 days, Chew tablet before swallowing., docusate sodium (COLACE) capsule 100 mg Given 07/19/2019 8:38 AM EST 100 mg 100 mg, Oral, 2 Times Daily, First dose on 07/18/19 at 0900, For 30 days Given 07/18/2019 9:06 PM EST 100 mg Given 07/18/2019 9:15 AM EST 100 mg montelukast (SINGULAIR) tablet 10 mg Given 07/19/2019 9:07 PM EST 10 mg 10 mg, Oral, Nightly, First dose on 07/18/19 at 2200, For 30 days Given 07/18/2019 9:06 PM EST 10 mg oxybutynin (DITROPAN) tablet 5 mg Given 07/19/2019 9:07 PM EST 5 mg 5 mg, Oral, 2 Times Daily, First dose on 07/18/19 at 1100, For 30 days Given 07/19/2019 8:38 AM EST 5 mg Given 07/18/2019 9:06 PM EST 5 mg senna (SENOKOT) syrup 10 mL 10 mL, Oral, Nightly PRN, Constipation, Starting 07/18/19 at 0227, For 30 days, Use NG tube nightly as needed if no BM on the third day., senna 8.6 MG 2 tablet 2 tablet, Oral, Nightly PRN, Constipation, Starting 07/18/19 at 0227, For 30 days Medication Order MAR Action Action Date Dose Rate Site cetirizine (ZYRTEC) tablet 10 mg Given 07/19/2019 2:10 AM EST 10 mg 10 mg, Oral, Once, [place] 07/19/19 at 0130, For 1 dose fentaNYL (SUBLIMAZE) (PF) injection 150 New Bag 07/20/2019 10:56 AM EST 150 mcg mcg 150 mcg, Intravenous, Once, 07/20/19 at 1100, For 1 dose, Given during [facility] already., fentaNYL (SUBLIMAZE) 100 MCG/2ML (PF) injection Starting 07/20/19 at 0938, For 1 dose, Sonia Jeff : cabinet override , iohexol (OMNIPAQUE) 350 MG/ML contrast Given 07/19/2019 12:20 AM EST 75 mLs injection 75 mL 75 mL, Given by IV, 1 TIME IMAGING, 07/19/19 at 0030, For 1 dose midazolam (PF) (VERSED) 2 MG/2ML injection Given 07/20/2019 11:13 AM EST 3 mg Starting 07/20/19 at 0937, For 1 dose, Sonia Jeff : cabinet override, documented in this encounter
== END 2019-07-18 01:10 | disposition short-term general hospital (02) ==
LOC: ED 00:08
DX: I63.9 Cerebral infarction, unspecified (principal); Z86.73 Personal history of transient ischemic attack (TIA), and cerebral infarction without residual deficits; Z85.3 Personal history of malignant neoplasm of breast; Z85.038 Personal history of other malignant neoplasm of large intestine
CPT/HCPCS: 36415; 70450; 70496; 70498; 80053; 80061; 83605; 84484; 85025; 85610; 85730; 93005; 96365; 99285; J2997; Q9967

== ENCOUNTER 2022-06-12 14:58 | Observation (INO) ==
[2022-06-12] MEDS ORDERED: Morphine 2 MG/ML SYRINGE IV ONE ×2 (15:58→17:04)
[2022-06-12] MEDS ORDERED: Ondansetron 4 mg VIAL 2 MG/ML 2 ml VIAL IV ONE (15:58)
[2022-06-12 16:18] LABS: ABS Eosinophils 0.1 10^3/ul (0-0.6); ABS Lymphocytes 1.1 10^3/ul (1.0-4.8); ABS Monocytes 0.5 10^3/ul (0-0.8); ABS Neutrophils 7.2 10^3/ul (1.5-7.7); Eosinophil % 0.8 %; Hematocrit 36 % (35-47); Hemoglobin 11.7 g/dL (12.0-16.0); Lymphocyte % 12.6 %; Mean Corpuscular HGB Conc 33 g/dL (31-36); Mean Corpuscular Hemoglobin 31 pg (27-31); Mean Corpuscular Volume 95 fL (80-97); Mean Platelet Volume 8.8 fL (7.4-10.4); Nucleated Red Blood Cells % 0.1; Platelet Count 216 10^3/uL (150-450); Red Blood Count 3.77 10^6 /uL (3.70-4.87); Red Cell Distribution Width 14 % (10-15)
[2022-06-12 17:15] LABS: Albumin 3.6 g/dL (3.2-5.2); Albumin/Globulin Ratio 1.5 (1-3); Calcium 8.6 mg/dL (8.6-10.3); Globulin 2.4 g/dL (2-4); Potassium 4.1 mmol/L (3.5-5.0); Total Bilirubin 0.4 mg/dL (0.2-1.0); eGFR CKD-EPI 90.1 (>60)
[2022-06-12] MEDS ORDERED: Senna TAB 8.6 mg TAB PO PRN (18:54)
[2022-06-12] MEDS ORDERED: Ondansetron 4 mg VIAL 2 MG/ML 2 ml VIAL IV PRN (19:08)
[2022-06-12] MEDS ORDERED: Magnesium Hydroxide LIQ 30 ML UDC PO PRN (19:08)
[2022-06-12] MEDS ORDERED: Albuterol HFA INHALER 8 gm MDI INH PRN (19:22)
[2022-06-12] MEDS ORDERED: Polyethyl Glycol/Propylene Gly OPHTH.SOLN BOTH EYES PRN (20:26)
[2022-06-13 05:56] LABS: ABS Lymphocytes 1.2 10^3/ul (1.0-4.8); ABS Monocytes 0.8 10^3/ul (0-0.8); ABS Neutrophils 7.6 10^3/ul (1.5-7.7); Hematocrit 30 % (35-47); Hemoglobin 10.2 g/dL (12.0-16.0); Lymphocyte % 12.5 %; Mean Corpuscular HGB Conc 34 g/dL (31-36); Mean Corpuscular Hemoglobin 32 pg (27-31); Mean Corpuscular Volume 94 fL (80-97); Mean Platelet Volume 9.2 fL (7.4-10.4); Platelet Count 194 10^3/uL (150-450); Red Blood Count 3.22 10^6 /uL (3.70-4.87); Red Cell Distribution Width 14 % (10-15); White Blood Count 9.7 10^3/uL (3.5-10.8)
[2022-06-13 06:04] LABS: INR 2.63 (0.89-1.11)
[2022-06-13 06:31] LABS: Calcium 8.1 mg/dL (8.6-10.3); Potassium 4.3 mmol/L (3.5-5.0)
[2022-06-13] MEDS: CMCS: FLUTICAS/UMECLI/VILANT 100-62.5-25 MDI (NF) INH SCH (08:59)
[2022-06-13] MEDS: Aspirin EC 81 mg TAB.EC (enteric coated) PO SCH (09:11)
[2022-06-13] MEDS: Fluticasone NASAL SPRAY 50MCG 16 gm SPRAY BTL BOTH NARES SCH (09:11)
[2022-06-13] MEDS ORDERED: Warfarin DAILY REMINDER **NOTE FOLLOW UP SCH (17:00)
[2022-06-14 05:56] LABS: ABS Lymphocytes 1.5 10^3/ul (1.0-4.8); ABS Monocytes 0.9 10^3/ul (0-0.8); ABS Neutrophils 5.6 10^3/ul (1.5-7.7); Eosinophil % 0.4 %; Hematocrit 27 % (35-47); Lymphocyte % 18.7 %; Mean Corpuscular HGB Conc 33 g/dL (31-36); Mean Corpuscular Hemoglobin 32 pg (27-31); Mean Corpuscular Volume 95 fL (80-97); Mean Platelet Volume 8.8 fL (7.4-10.4); Platelet Count 183 10^3/uL (150-450); Red Blood Count 2.85 10^6 /uL (3.70-4.87); Red Cell Distribution Width 14 % (10-15); White Blood Count 8.1 10^3/uL (3.5-10.8)
[2022-06-14] MEDS: CMCS: FLUTICAS/UMECLI/VILANT 100-62.5-25 MDI (NF) INH SCH (07:24)
[2022-06-14] MEDS: Fluticasone NASAL SPRAY 50MCG 16 gm SPRAY BTL BOTH NARES SCH (08:41)
[2022-06-14] MEDS: Aspirin EC 81 mg TAB.EC (enteric coated) PO SCH (08:44)
[2022-06-14 14:15] LABS: Hematocrit 29 % (35-47); Hemoglobin 9.6 g/dL (12.0-16.0)
[2022-06-14 14:59] VITALS: BP 114/68
== END 2022-06-14 17:05 | disposition home or self-care (01) ==
LOC: ED 14:58 → EDHOLD 14:58 → MED 06-13 01:20
PROVIDERS: ADMIT Internal Medicine; ATTEND Internal Medicine

== ENCOUNTER 2024-04-06 14:46 | Inpatient (IN) ==
[2024-04-06 16:03] LABS: Hematocrit 22.5 % (35-45); Hemoglobin 7.9 g/dL (11.5-14.3); Mean Corpuscular Hemoglobin 36.5 pg (27-33); Mean Corpuscular Volume 104.3 fL (80-97); Mean Platelet Volume 8.1 fL (7.5-11.2); Platelet Count 170 10^3/uL (150-450); Red Blood Count 2.16 10^6/uL (3.63-4.92); Red Cell Distribution Width 16.2 % (12-17); White Blood Count 1.7 10^3/uL (3.8-11.8)
[2024-04-06 16:17] LABS: ABS Neutrophils 0.5 10^3/uL (1.5-7.6)
[2024-04-06 16:19] LABS: High Sens Troponin Baseline 30 pg/mL (<15)
[2024-04-06 16:31] LABS: Activated Partial Thrombo Time 31.5 seconds (26.0-38.0); INR 1.94 (0.83-1.13)
[2024-04-06 17:00] LABS: ABS Lymphocytes 0.4 10^3/uL (1.0-4.8); ABS Monocytes 0.9 10^3/uL (0.0-0.9); Eosinophil % 0.2 %; Lymphocyte % 22.3 %; Nucleated Red Blood Cells % 0.1 %/100WBC (0.0-0.8); RBC Morphology Normal (Normal); Smudge Cells Present
[2024-04-06] MEDS: Cefepime 2 GM in Dextrose 2 GM/50 ML BAG IV ONE (17:14)
[2024-04-06] MEDS: NS 0.9% 1000 ml BAG 1,000 ML IV ONE (17:16)
[2024-04-06 17:19] LABS: ALT 37 U/L (7-52); Albumin 3.3 g/dL (3.2-5.2); Albumin/Globulin Ratio 1.1 (1-3); Alkaline Phosphatase 53 U/L (35-149); Anion Gap 11 mmol/L (2-16); Blood Urea Nitrogen 19 mg/dL (6-24); C Reactive Protein 177.63 mg/L (<8.01); CO2 Carbon Dioxide 25 mmol/L (22-32); Calcium 8.1 mg/dL (8.6-10.3); Chloride 93 mmol/L (101-111); Creatinine, Serum 0.61 mg/dL (0.51-0.95); Globulin 3.1 g/dL (2-4); Glucose 128 mg/dL (70-100); Sodium 129 mmol/L (135-145); Total Bilirubin 0.5 mg/dL (0.2-1.0); Total Protein 6.4 g/dL (6.4-8.9); eGFR CKD-EPI 87.6 (>60)
[2024-04-06] MEDS: Iohexol 350 (CONTRAST) 500 ML MDV IV ONE (18:50)
[2024-04-06 19:39] LABS: Potassium Redraw 4.1 mmol/L (3.5-5.0)
[2024-04-06 21:29] LABS: Urine Appearance Clear; Urine Bilirubin Negative (Negative); Urine Blood Negative (Negative); Urine Color Light-Yellow; Urine Glucose Negative (Negative); Urine Ketones Negative (Negative); Urine Nitrite Negative (Negative); Urine Protein Negative (Negative); Urine Specific Gravity 1.019 (1.002-1.030); Urine Urobilinogen Negative (Negative)
[2024-04-06] MEDS: Enoxaparin 40 MG/0.4 ML SYR SUBCUT SCH (21:36)
[2024-04-06 21:47] LABS: Osmolality Serum 274 mOsm/kg (275-295); Urine Osmo 221 mOsm/kg (150-1150)
[2024-04-06] MEDS ORDERED: Warfarin per PHARMACY **NOTE FOLLOW UP SCH (22:00)
[2024-04-06] MEDS: NS 0.9% 1000 ml BAG 1,000 ML IV SCH (22:35)
[2024-04-06] MEDS ORDERED: Polyethylene Glycol 3350 17 GM PACKET PO PRN (22:50)
[2024-04-06] MEDS ORDERED: Magnesium Hydroxide LIQ 30 ML UDC PO PRN (22:50)
[2024-04-06] MEDS ORDERED: Senna TAB 8.6 mg TAB PO PRN (22:50)
[2024-04-06] MEDS ORDERED: Polyethyl Glycol/Propylene Gly OPHTH.SOLN BOTH EYES PRN (22:54)
[2024-04-07] MEDS: Cefepime 2 GM in Dextrose 2 GM/50 ML BAG IV SCH ×2 (00:53→17:47)
[2024-04-07 07:02] LABS: INR 2.22 (0.83-1.13)
[2024-04-07 07:28] LABS: Hemoglobin 7.7 g/dL (11.5-14.3); Mean Corpuscular Hemoglobin 36.8 pg (27-33); Mean Corpuscular Hgb Conc 34.8 g/dL (31-36); Mean Corpuscular Volume 105.6 fL (80-97); Mean Platelet Volume 8.1 fL (7.5-11.2); Platelet Count 125 10^3/uL (150-450); Red Blood Count 2.08 10^6/uL (3.63-4.92); Red Cell Distribution Width 16.2 % (12-17); White Blood Count 1.7 10^3/uL (3.8-11.8)
[2024-04-07 07:30] LABS: Calcium 6.9 mg/dL (8.6-10.3); Creatinine, Serum 0.57 mg/dL (0.51-0.95); Potassium 4.2 mmol/L (3.5-5.0)
[2024-04-07 08:36] LABS: Anisocytosis 1+; Macrocytosis 1+
[2024-04-07 08:39] LABS: ABS Lymphocytes 0.6 10^3/uL (1.0-4.8); ABS Monocytes 0.2 10^3/ul (0.0-0.9); ABS Neutrophils 0.3 10^3/uL (1.5-7.6)
[2024-04-07 08:42] LABS: ABS Lymphocytes 0.6 10^3/ul (1.0-4.8)
[2024-04-07 09:38] LABS: ABS Neutrophils 0.3 10^3/ul (1.5-7.6)
[2024-04-07] MEDS: CMCS: FLUTICAS/UMECLI/VILANT 100-62.5-25 MDI (NF) INH SCH (12:56)
[2024-04-07] MEDS: Morphine 2 MG/ML SYRINGE IV PRN (13:03)
[2024-04-07] MEDS: Fluticasone NASAL SPRAY 50MCG 16 gm SPRAY BTL BOTH NARES SCH (13:04)
[2024-04-07 15:40] LABS: Ferritin 547.1 ng/mL (11-307)
[2024-04-07 15:43] LABS: Folate 10.02 ng/mL (5.90-24.80)
[2024-04-07] MEDS: Warfarin DAILY REMINDER **NOTE FOLLOW UP SCH (18:29)
[2024-04-07 23:16] LABS: Hemoglobin 9.1 g/dL (11.5-14.3)
[2024-04-08 06:28] LABS: Hemoglobin 9.1 g/dL (11.5-14.3); Mean Corpuscular Hemoglobin 36.8 pg (27-33); Mean Corpuscular Hgb Conc 36.3 g/dL (31-36); Mean Corpuscular Volume 101.4 fL (80-97); Mean Platelet Volume 7.9 fL (7.5-11.2); Platelet Count 122 10^3/uL (150-450); Red Blood Count 2.47 10^6/uL (3.63-4.92); Red Cell Distribution Width 18.6 % (12-17); White Blood Count 2.5 10^3/uL (3.8-11.8)
[2024-04-08 06:34] LABS: INR 2.28 (0.85-1.14)
[2024-04-08 07:52] LABS: Calcium 7.3 mg/dL (8.6-10.3); Creatinine, Serum 0.48 mg/dL (0.51-0.95); Magnesium 1.8 mg/dL (1.9-2.7); Potassium 4.2 mmol/L (3.5-5.0); eGFR CKD-EPI 92.8 (>60)
[2024-04-08 08:49] LABS: ABS Lymphocytes 1.2 10^3/ul (1.0-4.8); ABS Monocytes 0.3 10^3/ul (0.0-0.9)
[2024-04-08 08:53] LABS: RBC Morphology Normal (Normal); Smudge Cells Present
[2024-04-08 08:55] LABS: Eosinophil % 0.2 %; Lymphocyte % 14.6 %; Nucleated Red Blood Cells % 0.4 %/100WBC (0.0-0.8)
[2024-04-08 08:57] LABS: ABS Neutrophils 0.6 10^3/ul (1.5-7.6)
[2024-04-08] MEDS: Polyethylene Glycol 3350 17 GM PACKET PO ONE (11:07)
[2024-04-08] MEDS: Azithromycin 500 mg/250 ml NS 500 MG/250 ML BAG IVPB SCH (13:16)
[2024-04-09 06:14] LABS: Hematocrit 26.7 % (35-45); Hemoglobin 9.5 g/dL (11.5-14.3); Mean Corpuscular Hemoglobin 36.4 pg (27-33); Mean Corpuscular Hgb Conc 35.7 g/dL (31-36); Mean Corpuscular Volume 102.1 fL (80-97); Mean Platelet Volume 8.1 fL (7.5-11.2); Platelet Count 131 10^3/uL (150-450); Red Blood Count 2.62 10^6/uL (3.63-4.92); Red Cell Distribution Width 18.2 % (12-17); White Blood Count 2.7 10^3/uL (3.8-11.8)
[2024-04-09 06:34] LABS: INR 2.61 (0.85-1.14)
[2024-04-09 06:54] LABS: Calcium 7.2 mg/dL (8.6-10.3); Creatinine, Serum 0.41 mg/dL (0.51-0.95); Magnesium 1.9 mg/dL (1.9-2.7); Phosphorus 1.7 mg/dL (2.5-5.0); Potassium 4.1 mmol/L (3.5-5.0); eGFR CKD-EPI 96.4 (>60)
[2024-04-09 08:16] LABS: ABS Lymphocytes 0.3 10^3/uL (1.0-4.8); ABS Monocytes 1.6 10^3/uL (0.0-0.9); ABS Neutrophils 0.8 10^3/uL (1.5-7.6); ABS Nucleated RBC 0.01 10^3/ul; Eosinophil % 0.1 %; Lymphocyte % 11.3 %; Nucleated Red Blood Cells % 0.3 %/100WBC (0.0-0.8); RBC Morphology Normal (Normal); Smudge Cells Present
[2024-04-09] MEDS: Magnesium Sulfate IV 1GM/100ML 1 GM/100 ML BAG IV ONE (10:14)
[2024-04-09] MEDS: Morphine 2 MG/ML SYRINGE IV PRN (15:22)
[2024-04-09] MEDS: Furosemide 20 mg/2 ml IV VIAL IV ONE (17:15)
[2024-04-09] MEDS: Albuterol HFA INHALER 8 gm MDI INH PRN (17:50)
[2024-04-09] MEDS: Albuterol/Ipratropium NEB.SOL (2.5/0.5 MG) 3 ML NEB.SOLN INH ONE (17:55)
[2024-04-09] MEDS ORDERED: LORazepam 2 mg VIAL 1 ml IV PUSH PRN (18:01)
[2024-04-09] MEDS ORDERED: Ondansetron ODT 4 mg TAB 4 MG TAB SL PRN (18:01)
[2024-04-09] MEDS: Albuterol/Ipratropium NEB.SOL (2.5/0.5 MG) 3 ML NEB.SOLN ONE (19:12)
[2024-04-09] MEDS: Morphine ORAL CONCENTRATE 5 MG/0.25 ML ORAL.SYRIN SL PRN (20:09)
[2024-04-09] MEDS: Scopolamine 1 mg/72hr PATCH TRANSDERM SCH (20:10)
[2024-04-09] MEDS ORDERED: Albuterol HFA INHALER 8 gm MDI INH PRN (23:33)
[2024-04-10] MEDS ORDERED: Morphine 2 MG/ML SYRINGE IV SCH (09:00)
[2024-04-10 10:00] VITALS: BP 107/67
[2024-04-10] MEDS: Morphine 2 MG/ML SYRINGE IV SCH (10:48)
[2024-04-10] MEDS: Ondansetron 4 mg VIAL 2 MG/ML 2 ml VIAL IV PRN (19:39)
[2024-04-10] MEDS: Atropine 1% (ORAL/SL) 15 ML BTL SL PRN (23:36)
[2024-04-11] MEDS: Glycopyrrolate IV 0.2 MG/ML 1 ML VIAL IV SLOW PU ONE (12:08)
[2024-04-11] MEDS: Acetaminophen IV 1 GM/100ML 1,000 MG/100 ML BAG IV ONE (20:01)
[2024-04-12 14:18] LABS: Anaplasma phagocytophilum Negative (Negative); B. miyamotoi PCR, B Negative (Negative); Babesia divergens/MO-1 Negative (Negative); Babesia ducani Negative (Negative); Ehrlichia chaffeensis Negative (Negative); Ehrlichia ewingii/canis Negative (Negative); Ehrlichia muris eauclairensis Negative (Negative)
== END 2024-04-11 23:47 | disposition expired | DRG 871 ==
LOC: EDHOLD 14:46 → ED 14:46 → SUATTDRO 19:38 → MED 04-07 12:29
PROVIDERS: ADMIT Internal Medicine; ATTEND Internal Medicine